=== PATIENT | female | born 1955 | race Caucasian/White ===

== ENCOUNTER → 2017-07-30 11:06 | Outpatient (CLI) | payer BC, SELFPAY ==
--- NOTE | 2017-07-30 11:47 | HPBI_ITS ---
MAMMOGRAPHY - BILATERAL SCREENING REASON FOR EXAM: Female, 62 years old. Routine annual screening examination. PERTINENT HISTORY: Non-contributory. TECHNIQUE: Digital bilateral breast asael (3D mammographic acquisition) in the CC and MLO projections. 2-D mediolateral oblique (MLO) and craniocaudad (CC) views of both breasts were obtained. CAD: Full Field Digital Mammography with Computer Added Detection was performed. COMPARISON: Comparison is made with prior study dated May 09, 2015 and April 30, 2012. FINDINGS: Breast Composition: There are scattered areas of fibroglandular density. There are no dominant masses or suspicious calcifications. Stable benign-appearing bilateral axillary lymph nodes. No other significant abnormalities are identified. There has been no significant change since the prior study. HPBI/SCREENING MAMM (CAD), BILAT IMPRESSION: Stable bilateral screening mammogram. Yearly follow-up mammogram recommended. (A) ASSESSMENT CATEGORY: BIRADS Category 2: Benign. A letter regarding these results will be sent to the patient by the facility within 30 days. Approximately 10% of breast cancers are not detected by mammography. A normal mammogram should not delay biopsy of a clinically suspicious abnormality. [id number] Electronically Signed: Randall Ashford MD at 13:02 EST Tel [phone], Service support ,
[2017-08-04 16:04] LABS: HPV Reflexed? NOT INDICATED
== END ==
PROVIDERS: Visit Provider Obstetrics & Gynecology
DX: Z12.31 Encounter for screening mammogram for malignant neoplasm of breast (principal); Z12.4 Encounter for screening for malignant neoplasm of cervix
CPT/HCPCS: 77063; 77067; 88175; G0145

== ENCOUNTER → 2018-12-28 13:14 | Outpatient (CLI) | payer MEDICARE, OTHER, SELFPAY ==
--- NOTE | 2018-12-28 13:17 | BI_ITS ---
MAMMOGRAPHY - BILATERAL SCREENING REASON FOR EXAM: Female, 63 years old. Routine annual screening examination. PERTINENT HISTORY: Non-contributory. TECHNIQUE: Digital bilateral breast sherrie (3D mammographic acquisition) in the CC and MLO projections. 2-D mediolateral oblique (MLO) and craniocaudad (CC) views of both breasts were obtained. CAD: Full Field Digital Mammography with Computer Added Detection was performed. COMPARISON: Comparison is made with prior study dated July 30, 2017 and May 09, 2015. FINDINGS: Breast Composition: There are scattered areas of fibroglandular density. There are no dominant masses or suspicious calcifications. Stable small bilateral axillary lymph nodes. No other significant abnormalities are identified. There has been no significant change since the prior study. BI/SCREEN MAMM (CAD) W/SHERRIE BILAT IMPRESSION: Stable bilateral screening mammogram. Yearly follow-up mammogram recommended. (A) ASSESSMENT CATEGORY: BIRADS Category 1: Negative. A letter regarding these results will be sent to the patient by the facility within 30 days. Approximately 10% of breast cancers are not detected by mammography. A normal mammogram should not delay biopsy of a clinically suspicious abnormality. [id number] Electronically Signed: Randall Ashford, at 14:37 EDT , Service support ,
== END ==
PROVIDERS: Referring Provider Obstetrics & Gynecology; Visit Provider Obstetrics & Gynecology
DX: Z12.31 Encounter for screening mammogram for malignant neoplasm of breast (principal)
CPT/HCPCS: 77063; 77067

== ENCOUNTER → 2021-04-10 11:37 | Outpatient (CLI) | payer MEDICARE, OTHER, SELFPAY ==
--- NOTE | 2021-04-10 11:45 | BI_ITS ---
MAMMOGRAPHY - BILATERAL SCREENING REASON FOR EXAM: Female, 66 years old. Routine annual screening examination. PERTINENT HISTORY: Non-contributory. TECHNIQUE: Digital bilateral breast sherrie (3D mammographic acquisition) in the CC and MLO projections. 2-D mediolateral oblique (MLO) and craniocaudad (CC) views of both breasts were obtained. CAD: Full Field Digital Mammography with Computer Added Detection was performed. COMPARISON: Comparison is made with prior study dated 12/28/2018 and 07/30/2017. FINDINGS: Breast Composition: There are scattered areas of fibroglandular density. There are no dominant masses or suspicious calcifications. Stable small benign-appearing bilateral axillary lymph nodes. No other significant abnormalities are identified. There has been no significant change since the prior study. BI/SCRN MAMM (CAD)W/SHERRIE BILAT IMPRESSION: Stable bilateral screening mammogram. Yearly follow-up mammogram recommended. (A) ASSESSMENT CATEGORY: BIRADS Category 2: Benign. A letter regarding these results will be sent to the patient by the facility within 30 days. Approximately 10% of breast cancers are not detected by mammography. A normal mammogram should not delay biopsy of a clinically suspicious abnormality. [id number] Electronically Signed: Randall Ashford MD at 13:12 EST , Service support ,
== END ==
PROVIDERS: Referring Provider Obstetrics & Gynecology; Visit Provider Obstetrics & Gynecology
DX: Z12.31 Encounter for screening mammogram for malignant neoplasm of breast (principal)
CPT/HCPCS: 77063; 77067

== ENCOUNTER 2021-08-09 16:00 | Outpatient (CLI) | payer MEDICARE, OTHER, SELFPAY ==
[2021-08-09 17:21] LABS: Anion Gap 2 (5-15); BUN 20 mg/dL (7-18); BUN/Creat Ratio 23.2 RATIO (10-20); Calcium,Total 8.7 mg/dL (8.5-10.1); Chloride 106 mmol/L (98-107); Creatinine, Serum 0.86 mg/dL (0.55-1.02); EST Glomerular Filtration Rate 69 mL/min (>60); Est Glom Filt Rate - Afr Amer 84 mL/min (>60); Glucose 106 mg/dL (74-106); Potassium 4.2 mmol/L (3.5-5.1); Sodium Level 139 mmol/L (136-145)
== END 2021-08-09 23:59 | disposition home or self-care (01) ==
LOC: LAB 16:02
PROVIDERS: Referring Provider Specialist; Visit Provider Specialist
DX: Z01.818 Encounter for other preprocedural examination (principal)
CPT/HCPCS: 36415; 80048

== ENCOUNTER → 2023-07-06 | Outpatient (CLI) | payer MEDICARE, OTHER, SELFPAY ==
[2023-07-06 10:45] LABS: Absolute Lymphocyte Count 1.31 X10^3/uL (0.83-4.51); Basophil# 0.02 X10^3/uL; Basophil% 0.4 % (0-1); Eosinophil# 0.21 X10^3/uL; Eosinophils% 4.3 % (0-5); Hematocrit 38.8 % (37-47); Hemoglobin 12.6 g/dL (12.0-15.0); Lymphocyte # 1.31 X10^3/ul (0.83-4.51); Lymphocyte % 26.7 % (19-41); Mean Corp Hgb Conc 32.5 g/dL (32-36); Mean Corpuscular Hgb 29.5 pg (27.0-32.0); Mean Corpuscular Volume 90.9 fL (81-99); Mean Platelet Vol. 10.7 fl (6.2-12.0); Monocyte# 0.38 X10^3/uL; Monocyte% 7.8 % (0-10); NRBC Flagged by Analyzer 0 % (0-5); Neutrophil # 2.97 X10^3/uL (2.7-7.7); Neutrophil % 60.6 % (47-70); Platelet Count 270 K/mm3 (150-450); RBC Distribution Width CV 13.6 % (11.6-14.6); RBC Distribution Width SD 45.5 fl (35.1-43.9); Red Blood Count 4.27 M/mm3 (4.2-5.4); White Blood Count 4.9 K/mm3 (4.4-11.0)
[2023-07-06 11:38] LABS: Mucous, Urine 0 SEEN /hpf (<or=2+)
[2023-07-06 12:34] LABS: ALB/GLOB Ratio 0.8 RATIO (0.9-2.4); AST(SGOT) 20 U/L (15-37); Alanine Aminotransfer ALT/SGPT 19 U/L (13-56); Albumin, Serum 3.3 g/dL (3.2-5.0); Alkaline Phosphatase 99 U/L (45-117); Anion Gap 4 (5-15); BUN 16 mg/dL (7-18); BUN/Creat Ratio 18.1 RATIO (10-20); Chloride 110 mmol/L (98-107); Cholesterol 210 mg/dL (200); Creatinine, Serum 0.89 mg/dL (0.55-1.02); EST Glomerular Filtration Rate 67 mL/min (>60); Est Glom Filt Rate - Afr Amer 81 mL/min (>60); Globulin 4.3 g/dL (2.2-4.2); Glucose 94 mg/dL (74-106); High Density Lipoprotein 64 mg/dL; Potassium 4.1 mmol/L (3.5-5.1); Protein, Total 7.6 g/dL (6.4-8.2); Sodium Level 143 mmol/L (136-145); T4 Free Direct 0.69 ng/dL (0.76-1.46); Triglycerides 91 mg/dL; Very Low Density Lipoprotein 18 mg/dL (5-40)
[2023-07-06 12:44] LABS: Color, Urine Yellow (Yellow); Glucose, Dipstick Normal (Normal); Ketone-Dipstick Negative (Negative); Leukocyte Esterase-Dipstick 100 /ul (Negative); Nitrite-Dipstick Negative (Negative); Occult Blood-Urine 25 /ul (Negative); Protein-Dipstick 30 mg/dl (Negative); Urine Bilirubin Dipstick Negative (Negative); Urine Clarity Clear (Clear); Urine Urobilinogen Normal (Normal)
[2023-07-06 14:18] LABS: Bacteria 1+ /hpf (None Seen); Red Blood Cells-Urine 0-5 SEEN /hpf (0-5); Squamous Epithelial Cells - UA 0-5 SEEN /hpf (5-10); White Blood Cells 10-25 SEEN /hpf (0-5)
== END | disposition home or self-care (01) ==
LOC: BIMLAB 09:22
PROVIDERS: PCP Internal Medicine; Referring Provider Internal Medicine; Visit Provider Internal Medicine
DX: D64.9 Anemia, unspecified (principal); L65.9 Nonscarring hair loss, unspecified; E66.9 Obesity, unspecified
CPT/HCPCS: 36415; 80053; 80061; 81001; 84439; 84443; 85025

== ENCOUNTER → 2023-07-28 | Outpatient (CLI) | payer MEDICARE, OTHER, SELFPAY ==
--- NOTE | 2023-07-28 13:08 | BI_ITS ---
MAMMOGRAPHY - BILATERAL SCREENING 3-D TOMOSYNTHESIS REASON FOR EXAM: Female, 68 years old. Breast cancer screening PERTINENT HISTORY: No significant family history. TECHNIQUE: 2-D mammograms and 3-D Tomosynthesis of the breast (s) were performed. CAD was performed. COMPARISON: 04/10/2021 FINDINGS: The breast composition is composed of scattered fibroglandular density. Scattered benign calcifications are seen. No dense spiculated masses or suspicious microcalcifications are identified. No architectural distortion is identified. There is no skin thickening or retraction. There has been no significant change since the prior study. BI/SCRN MAMM (CAD)W/SHERRIE BILAT IMPRESSION: No mammographic signs of malignancy. Routine yearly mammograms recommended. ASSESSMENT CATEGORY: BIRADS Category 1: Negative. A letter regarding these results will be sent to the patient by the facility within 30 days. FOLLOW UP RECOMMENDATION: Yearly follow up mammogram recommended. (A) Approximately 10% of breast cancers are not detected by mammography. A normal mammogram should not delay biopsy of a clinically suspicious abnormality. Electronically Signed: John Ann MD at 17:31 EST ,
--- NOTE | 2023-07-28 13:12 | BD_ITS ---
STUDY: DUAL ENERGY X-RAY ABSORPTIOMETRY / DXA REASON FOR EXAM: Female, 68 years old. Post menopausal TECHNIQUE: Bone Mineral Density (BMD) measurements of lumbar spine and bilateral hips were obtained. COMPARISON: None. FINDINGS: Lumbar Spine (L1-L4): g/cm2 (0.856) / T-score (-1.1) / Z-score (0.9) Findings are suggestive of osteopenia with a low fracture risk. Left Femur Total: g/cm2 (0.827) / T-score (-0.9) / Z-score (0.6) Left Femoral Neck: g/cm2 (0.678) / T-score (-1.5) / Z-score (0.3) Right Femur Total: g/cm2 (0.788) / T-score (-1.3) / Z-score (0.3) Right Femoral Neck: g/cm2 (0.675) / T-score (-1.6) / Z-score (0.3) BD/Dexa Bone Density Study IMPRESSION: The patient is considered osteopenic as outlined below according to World Piot[employer] Organization (WHO) criteria with a moderate fracture risk. Reference Information: The T-score is the number of standard deviations above or below the standard which is normal for young adults at their peak bone mineral density. The World Health Organization (WHO) interprets the T-scores as follows: Above -1 Normal bone density Between -1 and -2.5 Osteopenia Equal to / or below -2.5 Osteoporosis As a practical clinical guideline, osteopenia may be graded as follows: Mild -1 through -1.5 Moderate -1.6 through -2.0 Severe -2.1 through -2.4 The Z-score is the number of standard deviations above or below age-matched controls. A Z-score of less than -1.5 would be considered abnormal. References: 1. NIH Osteoporosis and Related Bone Diseases www osteo.org 2. International Society for Clinical Densitometry www iscd.org 3. National Osteoporosis Foundation www nof.org Electronically Signed: Randall Ashford MD at 14:12 EDT ,
== END | disposition home or self-care (01) ==
LOC: OPBD 13:08
PROVIDERS: PCP Internal Medicine; Referring Provider Internal Medicine; Visit Provider Internal Medicine
DX: Z12.31 Encounter for screening mammogram for malignant neoplasm of breast (principal); Z78.0 Asymptomatic menopausal state
CPT/HCPCS: 77063; 77067; 77080

== ENCOUNTER → 2023-08-25 | Outpatient (CLI) | payer MEDICARE, OTHER, SELFPAY ==
[2023-08-25 13:05] LABS: Thyroid Stim Hormone (TSH) 3.45 uIU/mL (0.358-3.74)
== END | disposition home or self-care (01) ==
LOC: BIMLAB 10:26
PROVIDERS: PCP Internal Medicine; Referring Provider Internal Medicine; Visit Provider Internal Medicine
DX: E03.9 Hypothyroidism, unspecified (principal)
CPT/HCPCS: 36415; 84443

== ENCOUNTER → 2024-02-24 | Outpatient (CLI) | payer MEDICARE, OTHER, SELFPAY | END | disposition home or self-care (01) | LOC: BIMLAB 10:07 | PROVIDERS: PCP Internal Medicine; Referring Provider Internal Medicine; Visit Provider Internal Medicine | DX: E03.9 Hypothyroidism, unspecified (principal) | CPT/HCPCS: 36415; 84443 ==

== ENCOUNTER → 2024-04-12 | Outpatient (CLI) | payer MEDICARE, OTHER, SELFPAY | END | disposition home or self-care (01) | LOC: BIMLAB 13:15 | PROVIDERS: PCP Internal Medicine; Visit Provider Internal Medicine | DX: E03.9 Hypothyroidism, unspecified (principal) | CPT/HCPCS: 36415; 84443 ==

== ENCOUNTER → 2024-05-31 | Outpatient (CLI) | payer MEDICARE, OTHER, SELFPAY | END | disposition home or self-care (01) | LOC: BIMLAB 11:45 | PROVIDERS: PCP Internal Medicine; Referring Provider Internal Medicine; Visit Provider Internal Medicine | DX: E03.9 Hypothyroidism, unspecified (principal) | CPT/HCPCS: 36415; 84443 ==

== ENCOUNTER → 2024-07-20 | Outpatient (CLI) | payer MEDICARE, OTHER, SELFPAY ==
[2024-07-20 13:03] LABS: Thyroid Stim Hormone (TSH) 0.943 uIU/mL (0.300-4.200)
== END | disposition home or self-care (01) ==
LOC: BIMLAB 11:10
PROVIDERS: PCP Internal Medicine; Referring Provider Internal Medicine; Visit Provider Internal Medicine
DX: E03.9 Hypothyroidism, unspecified (principal)
CPT/HCPCS: 36415; 84439; 84443

== ENCOUNTER → 2024-09-05 | Outpatient (CLI) | payer MEDICARE, OTHER, SELFPAY ==
[2024-09-05 12:45] LABS: Absolute Lymphocyte Count 1.34 X10^3/uL (0.83-4.51); Absolute Neutrophil Count 3.8 X10^3/uL (2.0-7.7); Basophil# 0.02 X10^3/uL; Basophil% 0.4 % (0-1); Eosinophil# 0.18 X10^3/uL; Eosinophils% 3.2 % (0-5); Hematocrit 39.2 % (37-47); Hemoglobin 12.8 g/dL (12.0-15.0); Lymphocyte # 1.34 X10^3/ul (0.83-4.51); Lymphocyte % 23.6 % (19-41); Mean Corp Hgb Conc 32.7 g/dL (32-36); Mean Corpuscular Hgb 29.5 pg (27.0-32.0); Mean Corpuscular Volume 90.3 fL (81-99); Mean Platelet Vol. 10.9 fl (6.2-12.0); Monocyte# 0.37 X10^3/uL; Monocyte% 6.5 % (0-10); NRBC Flagged by Analyzer 0 % (0-5); Neutrophil # 3.78 X10^3/uL (2.7-7.7); Neutrophil % 66.3 % (47-70); Platelet Count 274 K/mm3 (150-450); RBC Distribution Width CV 13.3 % (11.6-14.6); RBC Distribution Width SD 44.3 fl (35.1-43.9); Red Blood Count 4.34 M/mm3 (4.2-5.4); White Blood Count 5.7 K/mm3 (4.4-11.0)
[2024-09-05 13:45] LABS: Cholesterol 209 mg/dL (<=200); High Density Lipoprotein 67 mg/dL; Low Density Lipoprotein Calc. 119 mg/dL; Thyroid Stim Hormone (TSH) 0.873 uIU/mL (0.300-4.200); Triglycerides 113 mg/dL; Very Low Density Lipoprotein 23 mg/dL (5-40); cholesterol:hdl ratio screen 3.11
[2024-09-05 13:46] LABS: ALB/GLOB Ratio 1.2 RATIO (0.9-2.4); AST(SGOT) 24 U/L (<=31); Alanine Aminotransfer ALT/SGPT 13 U/L (<=34); Alkaline Phosphatase 91 U/L (35-104); Anion Gap 11 (5-15); BUN 16 mg/dL (4-19); BUN/Creat Ratio 18.2 RATIO (10-20); Calcium,Total 9.3 mg/dL (7.6-11.0); Carbon Dioxide 26.6 mmol/L (21.0-32.0); Chloride 105 mmol/L (98-108); EST Glomerular Filtration Rate 68 (>60); Globulin 3.4 g/dL (2.2-4.2); Glucose 117 mg/dL (70-99); Potassium 3.7 mmol/L (3.3-5.1); Protein, Total 7.4 g/dL (5.9-8.4); Sodium Level 143 mmol/L (133-145); Total Bilirubin 0.35 mg/dL (0.00-1.30)
== END | disposition home or self-care (01) ==
LOC: BIMLAB 10:54
PROVIDERS: PCP Internal Medicine; Referring Provider Internal Medicine; Visit Provider Internal Medicine
DX: E03.9 Hypothyroidism, unspecified (principal); R73.9 Hyperglycemia, unspecified
CPT/HCPCS: 36415; 80053; 80061; 83036; 84443; 85025

== ENCOUNTER → 2024-09-20 | Outpatient (CLI) | payer MEDICARE, OTHER, SELFPAY ==
--- NOTE | 2024-09-20 09:45 | BI_ITS ---
EXAM: SCRN MAMM (CAD)W/SHERRIE BILAT 09/20/2024 CLINICAL HISTORY: F, Age 69 y/o , BREAST CANCER SCREENING TECHNIQUE: Bilateral screening digital breast tomosynthesis with 2D and 3D images. Computer aided detection. COMPARISON: Prior exam(s) dated 07/28/2023, 04/10/2021, 12/28/2018. FINDINGS: TISSUE DENSITY: The breast tissue is composed of scattered area of fibroglandular density. Bilateral Breast Mammographic Findings: No significant masses, calcifications or other abnormalities are identified. BI/SCRN MAMM (CAD)W/SHERRIE BILAT IMPRESSION: Right Breast: BIRADS 1 NEGATIVE. Left Breast: BIRADS 1 NEGATIVE. OVERALL FINAL ASSESSMENT: BIRADS 1 NEGATIVE. RECOMMENDATION: Routine annual follow-up in 1 Year A letter with findings and recommendations will be mailed to the patient. Reading Location: [id number]
== END | disposition home or self-care (01) ==
LOC: OPBI 09:33
PROVIDERS: PCP Internal Medicine; Referring Provider Internal Medicine; Visit Provider Internal Medicine
DX: Z12.31 Encounter for screening mammogram for malignant neoplasm of breast (principal)
CPT/HCPCS: 77063; 77067

== ENCOUNTER → 2025-01-21 | Outpatient (CLI) | payer MEDICARE, OTHER, SELFPAY ==
--- OUTSIDE RECORDS SUMMARY | 2025-01-21 08:42 | XMS RPT_ITS | CCD ---
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 Caicedo Attending Provider [phone] Lonny SCHNEIDER, Dr. Caicedo Primary Care Provider Lonny SCHNEIDER, Dr. Caicedo Attending Provider [phone] Lonny SCHNEIDER, Dr. Caicedo Referring Provider [phone] Lonny SCHNEIDER, Dr. Caicedo Primary Care Provider Lonny SCHNEIDER, Dr. Caicedo Attending Provider [phone] Lonny SCHNEIDER, Dr. Caicedo Primary Care Provider Lonny SCHNEIDER, Dr. Caicedo Attending Provider [phone] Lonny SCHNEIDER, Dr. Caicedo Referring Provider [phone] Bhanu SCHNEIDER, Dr. Chan Attending Provider Oleghe, Efewongbe Primary Care Unavailable Oleghe, Efewongbe Referring Unavailable Oleghe, Efewongbe Attending Unavailable Oleghe, Efewongbe Referring Unavailable Oleghe, Efewongbe Attending Unavailable Oleghe, Efewongbe Primary Care Unavailable Oleghe, Efewongbe Attending Unavailable Oleghe, Efewongbe Primary Care Unavailable Oleghe, Efewongbe Referring Unavailable Oleghe, Efewongbe Primary Care Unavailable Oleghe, Efewongbe Attending Unavailable Oleghe, Efewongbe Referring Unavailable Oleghe, Efewongbe Attending Unavailable Oleghe, Efewongbe Primary Care Unavailable Oleghe, Efewongbe Referring Unavailable Oleghe, Efewongbe Attending Unavailable Oleghe, Efewongbe Primary Care Unavailable Oleghe, Efewongbe Attending Unavailable Oleghe, Efewongbe Primary Care Unavailable Oleghe, Efewongbe Referring Unavailable Oleghe, Efewongbe Primary Care Unavailable Oleghe, Efewongbe Referring Unavailable Oleghe, Efewongbe Attending Unavailable Oleghe, Efewongbe Primary Care Unavailable Oleghe, Efewongbe Referring Unavailable Bhanu, [place] Attending Unavailable Oleghe, Efewongbe Referring Unavailable Oleghe, Efewongbe Attending Unavailable Oleghe, Efewongbe Primary Care Unavailable Oleghe, Efewongbe Primary Care Unavailable Oleghe, Efewongbe Referring Unavailable Oleghe, Efewongbe Attending Unavailable Allergies Allergy Classification Reported Allergen(s) Allergy Type Date of Onset Reaction(s) Facility (7 sources) Seasonal Allergies: Uncoded; Translations: [Seasonal Allergies: Uncoded] Allergy to substance 06-29-2023 sneezing [facility] Medications Current Medications Medication Drug Class(es) Dates Sig (Normalized) Sig (Original) Calcium (3 sources) Phosphate Binder, Calcium Start: 09-02-2023 calcium 600 Active PO September 02, 2023 12:00am ketoconazole 20 mg/ml medicated shampoo (1 source) Azole Antifungal Start: 12-21-2024 Ketoconazole 2 % shampoo Active TOPICAL TWICE A WEEK December 21, 2024 12:00am levothyroxine sodium 0.075 mg oral tablet (20 sources) l-Thyroxine Start: 06-02-2024 End: 09-05-2024 take 1 tablet by mouth once daily Levothyroxine 75 mcg tablet Active 75 ug PO DAILY 90 September 05, 2024 8:16pm Start: 07-06-2023 End: 06-02-2024 take 1 tablet by mouth once daily Levothyroxine 50 mcg tablet Discontinued 50 ug PO DAILY 60 February 24, 2024 10:50am March 07, 2024 10:36am metoprolol tartrate 50 mg oral tablet (1 source) beta-Adrenergic Danica Start: 10-04-2024 take 1 tablet by mouth once daily Metoprolol Tartrate 50 mg tablet Active 50 mg PO daily 1 October 04, 2024 12:00am minoxidil 2.5 mg oral tablet (3 sources) Arteriolar Vasodilator Start: 09-05-2024 End: 12-21-2024 take 1 tablet by mouth once daily Minoxidil 2.5 mg tablet Active 0.25 mg PO daily December 21, 2024 7:43am Multivitamin preparation (3 sources) Start: 06-29-2023 take 1 tablet by mouth once daily Multivitamin Active 1 TABLET PO DAILY June 29, 2023 1:00am Start: 06-29-2023 take 1 tablet by travis th once daily Multivitamin Active 1 TABLET PO DAILY June 29, 2023 12:00am Multivitamin tablet (3 sources) Start: 06-29-2023 Multivitamin t ablet Active 1 {tbl} PO DAILY June 29, 2023 1:00am rosuvastatin calcium 5 mg oral tablet (1 source) HMG-CoA Reductase Inhibitor Start: 12-21-2024 take 1 tablet by mouth once daily Rosuvastatin 5 mg tablet Active 5 mg PO daily 21 08December 21, 2024 12:00am Vit D 2000 (3 sources) Start: 09-02-2023 Vit D 2000 Act emily PO September 02, 2023 12:00am Problems Active Problems Problem Classification Problem Date Documented Da te Episodic/Chronic Coronary atherosclerosis and other heart disease (4 sources) Coronary arteriosclerosis; Translations: [Atherosclerotic heart disease of [place] coronary artery without angina pectoris] Onset: 12-21-2024 12-21-2024 Chronic Deficiency and other anemia (6 sources) Anemia; Translations: [Anemia, unspecified] 06-29-2023 Episodic Deficiency and other anemia (3 sources) Anemia, unspecified; Translations: [Anemia, unspecified] 06-29-2023 Episodic Genitourinary symptoms and ill-defined conditions (9 sources) Nocturia; Translations: [Nocturia] 06-29-2023 Episodic Other bone disease and musculoskeletal deformities (4 sources) Osteopenia; Translations: [Other specified disorders of bone density and structure, unspecified site] 03-07-2024 Episodic Other bone disease and musculoskeletal deformities (1 source) Other specified disorders of bone density and structure, unspecified site; Translations: [Other specified disorders of bone density and structure, unspecified site] Onset: 12-21-2024 Episodic Other screening for suspected conditions (not mental disorders or infectious disease) (1 source) Encounter for screening mammogram for malignant neoplasm of breast; Translations: [Encounter for screening mammogram for malignant neoplasm of breast] Onset: 12-13-2024 Episodic Other skin disorders (6 sources) Loss of hair; Translations: [Nonscarring hair loss, unspecified] 06-29-2023 Episodic Other skin disorders (3 sources) Nonscarring hair loss, unspecified; Translations: [Alopecia, unspecified] 06-29-2023 Episodic Residual codes; unclassified (4 sources) At risk of diabetes mellitus; Translations: [Other specified personal risk factors, not elsewhere classified] 09-05-2024 Episodic Residual codes; unclassified (2 sources) Cardiovascular event risk; Translations: [Other specified personal risk factors, not elsewhere classified] 09-05-2024 Episodic Residual codes; unclassified (4 sources) FH: premature coronary heart disease; Translations: [Family history of ischemic heart disease and other diseases of the circulatory system] 09-05-2024 Episodic Residual codes; unclassified (2 sources) Other specified personal risk factors, not elsewhere classified; Translations: [Other specified personal risk factors, not elsewhere classified] Onset: 10-05-2024 Episodic Thyroid disorders (10 sources) Hypothyroidism; Translations: [Hypothyroidism, unspecified] Onset: 12-21-2024 07-06-2023 Chronic Past or Other Problems Problem Classification Problem Date Documented Da te Episodic/Chronic Residual codes; unclassified (1 source) Family history of ischemic heart disease and other diseases of the circulatory system; Translations: [Family history of ischemic heart disease and other diseases of the circulatory system] Onset: 09-05-2024 Episodic Results Test Name Value Interpretation Reference Range Facility Internal Medicine Office Vis ito 12-21-2024 Internal Medicine Office Visit [facility] [address] [place] [address] [place] [address] OFFICE VISIT Date of Service: 12/21/24 MR#: [id number] Acct: [id number] Name: BAILEY BEST Rep #: [id number] : 1955 Provider: Dr. Marifer solis MD Age/Sex: 69/F Location: [facility] Status: Signed Intake Vital Signs 09/05/24 10:18 12/21/24 07:40 Height 5 ft 5 in 5 ft 5 in Weight: 182 lb 2 oz BMI 30.3 BP 110/58 L Blood Pressure Location Lt brachial Position Sitting Respiration 16 Pulse 83 Pulse Source Monitor Temp 97.7 F L Temp Source Oral Pulse Oximetry (%) 96 Oxygen Delivery Method room air Intake Visit Reasons: discuss calcium scoring Chief Complaint: Follow-up chronic conditions. 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 Required: No Accompanied by: Self Is patient in pain?: No Allergies Seasonal Allergies: Uncoded Allergy (Mild, Verified 12/21/24 07:42) sneezing Medications ???Medication ???Instructions ???Recorded ???Confirmed ???Type multivitamin 1 tab PO DAILY 06/29/23 12/21/24 H istory Vit D 2000 PO 09/02/23 12/21/24 History calcium 600 PO 09/02/23 12/21/24 History levothyroxine 75 mcg tablet 75 mcg PO DAILY #90 tabs 09/05/24 12/21/24 Rx metoprolol tartrate 50 mg tablet 50 mg PO QDAY #1 TAB 10/04/2411/24 Rx ketoconazole 2 % shampoo topical 2XW 12/21/24 12/21/24 Hist ory minoxidil 2.5 mg tablet 0.25 mg PO QDAY 12/21/24 12/21/24 History rosuvastatin 5 mg tablet 5 mg PO QDAY #30 tabs 12/21/24 Rx Have you fallen in the past year?: Yes Nurse's Note: patient is here to discuss results of calcium scoring. [facility] Medical History (Updated 12/21/24 @ 08:[address] Marifer Mukherjee MD) Coronary artery disease At risk for diabetes mellitus Family history of early CAD At risk for cardiovascular event Osteopenia Hypothyroidism Health care maintenance Hair loss Nocturia Trigger finger Gallstones Back problem Arthritis Anemia Allergies Surgical History Status post tendon repair History of cholecystectomy H/O tubal ligation Family History Sister Alcoholism Brother Alcoholism Arthritis Father Alcoholism Myocardial infarction, Onset Age: 60 Heart disease Mother Arthritis Heart disease Vitiligo Aunt Cancer Uncle Cancer Grandmother Diabetes Social History current occupational status: retired Smoking Status: Never smoker alcohol intake: current alcohol intake frequency: holidays/special occasions only Alcohol type: wine substance use type: does not use what type of physical activity do you participate in: walking frequency: 3-4 times per week kevin/sabianism: None seatbelt use: always do you feel safe at home: Yes HPI HPI Chief Complaint: Follow-up chronic conditions. Discussed coronary calcium scoring Details: BAILEY BEST, is a 69 F who presents to the office today for follow-up of her chronic conditions. Recently had coronary calcium scoring which showed mild plaque in the LAD. She states that her brother also had coronary calcium scoring with similar finding. Positive family history of early CAD. Last lipid profile with LDL at 119 down from 128. HDL was 67. No tobacco or alcohol abuse. Current BMI of 30.3. History of hypothyroidism on levothyroxine. Last TSH was within range. No heat or cold intolerance or unintentional weight changes. Other chronic medical conditions are stable. ROS Const Constitutional: No body ache, chills, excessive sweating, fatigue, fever(s), frequent falls, headache(s), snoring, weakness, weight change, sleep problems or change in appetite Eyes Eyes: No blurry vision, change in vision, vision loss, dry eyes, eye pain or Light sensitivity ENT ENT: No abnormal hearing, ear or mastoid pain, tinnitus, nasal congestion, headache(s), neck pain or sore throat Resp Respiratory: No cough, excessive phlegm production, hemoptysis, shortness of breath, snoring or wheezing Cardio Cardiology: No chest pain at rest, chest pain with exertion, excessive sweating, shortness of breath, lightheadedness, orthopnea or palpitations Gastro GI: No abdominal pain, change in bowel habits, constipation, cramping, diarrhea, nausea/dyspepsia or vomiting Genitourinary-Femal e: No burning urination, painful urination, urinary incontinence, urinary frequency, abnormal vaginal bleeding or pelvic pain Musc Musculoskeletal: No abnormal gait, joint pain, back pain, limited range of motion, neck pain, numbness or tingling Skin Skin: No change in skin color, dry skin, redness, lesions, itchy eyes, rash or wounds Neuro Neurology: No abnormal gait, abnormal hearing, abnormal speech (more content not included)... Normal [facility] Coronary Angiography CTon Coronary Angiography CT [facility] Imaging Services [address] [place] [address] 10/05/24 1625 MR#: [id number] Acct: [id number] Name: BAILEY BEST Rep #: [id number] : 1955 69 From: Dustin Drummond MD PCP: Dr. Marifer Mukherjee MD Status:REG REF Y Location: CT Calcium Scoring Date of Study:: 10/05/24 Indications Indications: Family history Coronary Calcium Scoring: High-resolution Computed Tomographic imaging of the chest was performed on [10/05/2024], with particular attention paid to the coronary arteries. Images from the examination were analyzed for the presence and extent of coronary artery calcification , using coronary calcium quantification software. The patient tolerated the procedure well and there were no complications. The results of the coronary calcification analysis are provided below. Findings Coronary Artery Left Main (LM): 0 Left Anterior Descending (LAD): 128 Left Circumflex (LCX): 0 Right Coronary Artery (RCA): 0 Total Agatston Score: 128 Percentile Rankin-7 5th percentile Calcium Scoring Interpretation: Different methods to categorize the overall amount of coronary plaque. Overall amount CAC SIS Visual of coronary plaque P1 Mild -100 <2 1-2 vessels with mild amount of plaque P2 Moderate 101-300 3-4 1-2 vessels with moderate amount, 3 vessels with mild amount of plaque P3 Severe 301-999 5-7 3 vessels with moderate amount, 1 vessel with severe amount of plaque P4 Extensive >1000 >8 2-3 vessels with severe amount of plaque Calcium Score: Mild: 1-2 vessels w/mild amount of plaque Conclusion: Mild single-vessel plaque noted in the left anterior descending artery. 10/05/24 1626 Date Dustin Drummond MD Cosigner Signature (if applicable): Date CC: Dr. Dustin Drummond MD; Dr. Marifer Mukherjee MD Signed Normal [facility] Limited Chest CT Cardiac Onl yon 10-05-[address] Cardiac Only [facility] Imaging Services [address] [place] [address] Cardiac Only MR#: [id number] Acct: [id number] Name: BAILEY BEST Rep #: [id number] : 1955 F 69 From: Randall looney MD PCP: Dr. Marifer Mukherjee MD Status: REG REF Study: Limited Chest CT Cardiac Only Date of Exam: Exam# [id number] Ordering Dr: Marifer Mukherjee MD PROCEDURE: LIMITED CHEST CT CARDIAC ONLY REASON FOR EXAM: FAMILY HISTORY OF EARLY CAD TECHNIQUE: Supine chest CT without contrast,. One or more dose reduction techniques were used (e.g., Automated exposure control, adjustment of the mA and/or kV according to patient size, use of iterative reconstruction technique). COMPARISON: None FINDINGS: Hardware: None Lymph nodes: Benign granulomatous calcifications. Heart and Vasculature: Normal heart size. No pericardial effusion. Coronary Artery Calcifications: Present Lungs and Airways: 9.7 mm calcified granuloma in the peripheral lateral aspect of the left lower lobe. Pleura: Unremarkable Upper Abdomen: Unremarkable Bones: Degenerative changes of the thoracic spine. CT/Limited Chest CT Cardiac Only IMPRESSION: Coronary artery calcification (CAC) is is present Reading Location: [id number] CC: Dr. Marifer Mukherjee MD Cake Washer: Signed Normal [facility] SCRN MAMM (CAD)W/SHERRIE BILATo n 09-20-2024 SCRN MAMM (CAD)W/SHERRIE BILAT [facility] Imaging Services [address] [place] [address] SCRN MAMM (CAD)W/SHERRIE BILAT MR#: [id number] Acct: [id number] Name: BAILEY BEST Rep #: [id number] : 1955 F 69 From: Rosalina Alba MD PCP: Dr. Marifer Mukherjee MD Status: REG CLI Study: SCRN MAMM (CAD)W/SHERRIE BILAT Date of Exam: 08/24 02/16 Exam# [id number] Ordering Dr: Marifer Mukherjee MD EXAM: SCRN MAMM (CAD)W/SHERRIE BILAT 09/20/2024 CLINICAL HISTORY: F, Age 69 y/o , BREAST CANCER SCREENING TECHNIQUE: Bilateral screening digital breast tomosynthesis with 2D and 3D images. Computer aided detection. COMPARISON: Prior exam(s) dated 07/28/2023, 04/10/2021, 12/28/2018. FINDINGS: TISSUE DENSITY: The breast tissue is composed of scattered area of fibroglandular density. Bilateral Breast Mammographic Findings: No significant masses, calcifications or other abnormalities are identified. BI/SCRN MAMM (CAD)W/SHERRIE BILAT IMPRESSION: Right Breast: BIRADS 1 NEGATIVE. Left Breast: BIRADS 1 NEGATIVE. OVERALL FINAL ASSESSMENT: BIRADS 1 NEGATIVE. RECOMMENDATION: Routine annual follow-up in 1 Year A letter with findings and recommendations will be mailed to the patient. Reading Location: [facility] CC: Dr. Marifer Mukherjee MD Cake Washer: Signed Normal [facility] Hemoglobin A1con 09-06-2024 HbA1c (Bld) [Mass fraction] 6.0 % High <=5.6 [facility] Comment on above: Result Comment: Norm al < 5.7 % Prediabetic 5.7 - 6.4 % Diabetic >or= 6.5 % Please note range changes. Performed By: #### L 501.9985 ####[facility] [address] [place], [address] Absolute lymphocyte countOrd ered By: Marifer Mukherjee on 09-05-2024 Lymphocytes Auto (Unsp spec) [#/Vol] 1.34 10*3/uL 0.83-4.51 [facility] Absolute neutrophil countOrd ered By: Marifer Mukherjee on 09-05-2024 Neutrophils (Bld) [#/Vol] 3.8 10*3/uL 2.0-7.7 [facility] Anion gap in Serum or Plasma Ordered By: Marifer Mukherjee on 09-05-2024 Anion gap [Moles/Vol] 11 mmol/L 5- [facility] Automated lymphocyte count a s percentage of total leukocytesOrdered By: Marifer Mukherjee on 09-05-2024 Lymphocytes/100 WBC Auto (Unsp spec) 23.6 % - [facility] BUN/creatinine ratioOrdered By: [facility] Mukherjee on 09-05-2024 Urea nitrogen/Creatinine [Mass ratio] 18.2 mg/mg 10- [facility] Basophil percentageOrdered B y: Marifer Mukherjee on 09-05-2024 Basophils/100 WBC (Bld) 0.4 % 0-1 [facility] Bilirubin, totalOrdered By: Marifer Mukherjee on 09-05-2024 Bilirubin [Mass/Vol] 0.35 mg/dL 0.00-1.30 [facility] CBC W/Diff, Automatedon 08-23 Absolute Lymph 1.34 X10 3/uL Normal 0.83-4.51 [facility] Comment on above: Performed By: #### L 100.0100, L500.4100, L500.4050, L501.9520 ####[facility] [address] [place], [address] Absolute Neut 3.8 X10 3/uL Normal 2.0-7.7 [facility] Comment on above: Performed By: #### L 100.0100, L500.4100, L500.4050, L501.9520 ####[facility] [address] [place], [address] Basophils/100 WBC (Bld) 0.4 % Normal 0-1 [facility] Comment on above: Performed By: #### L 100.0100, L500.4100, L500.4050, L501.9520 ####[facility] [address] [place], [address] Eosinophils/100 WBC (Bld) 3.2 % Normal 0-5 [facility] Comment on above: Performed By: #### L 100.0100, L500.4100, L500.4050, L501.9520 ####[facility] [address] [place], [address] Erythrocyte distribution width (RBC) [Ratio] 13.3 % Normal 11.6-14.6 [facility] Comment on above: Performed By: #### L 100.0100, L500.4100, L500.4050, L501.9520 ####[facility] [address] [place], [address] Hematocrit (Bld) [Volume fraction] 39.2 % Normal 37-47 [facility] Comment on above: Performed By: #### L 100.0100, L500.4100, L500.4050, L501.9520 ####[facility] [address] [place], [address] Hemoglobin (Bld) [Mass/Vol] 12.8 g/dL Normal 12.0-15.0 [facility] Comment on above: Performed By: #### L 100.0100, L500.4100, L500.4050, L501.9520 ####[facility] [address] [place], [address] IG% 0.000 Normal 0.0-0.9 [facility] Comment on above: Result Comment: IG% - Immature Granulocytes (promyelocytes, myelocytes and metamyelocytes) > 1% indicates that a LEFT SHIFT is Present. Performed By: #### L 100.0100, L500.4100, L500.4050, L501.9520 ####[facility] [address] [place], [address] Lymphocytes/100 WBC (Bld) 23.6 % Normal 19-41 [facility] Comment on above: Performed By: #### L 100.0100, L500.4100, L500.4050, L501.9520 ####[facility] [address] [place], [address] MCH (RBC) [Entitic mass] 29.5 pg Normal 27.0-32.0 [facility] Comment on above: Performed By: #### L 100.0100, L500.4100, L500.4050, L501.9520 ####[facility] [address] [place], [address] MCHC (RBC) [Mass/Vol] 32.7 g/dL Normal 32-36 [facility] Comment on above: Performed By: #### L 100.0100, L500.4100, L500.4050, L501.9520 ####[facility] [address] [place], [address] MCV (RBC) [Entitic vol] 90.3 fL Normal 81-99 [facility] Comment on above: Performed By: #### L 100.0100, L500.4100, L500.4050, L501.9520 ####[facility] [address] [place], [address] Monocytes/100 WBC (Bld) 6.5 % Normal 0-10 [facility] Comment on above: Performed By: #### L 100.0100, L500.4100, L500.4050, L501.9520 ####[facility] [address] [place], [address] Neutrophils/100 WBC (Bld) 66.3 % Normal 47-70 [facility] Comment on above: Performed By: #### L 100.0100, L500.4100, L500.4050, L501.9520 ####[facility] [address] [place], [address] Nucleated RBC (Bld) [#/Vol] 0 10*3/uL Normal 0-5 [facility] Comment on above: Performed By: #### L 100.0100, L500.4100, L500.4050, L501.9520 ####[facility] [address] [place], [address] Platelet mean volume (Bld) [Entitic vol] 10.9 fL Normal 6.2-12.0 [facility] Comment on above: Performed By: #### L 100.0100, L500.4100, L500.4050, L501.9520 ####[facility] [address] [place], [address] Platelets (Bld) [#/Vol] 274 10*3/uL Normal 150-450 [facility] Comment on above: Performed By: #### L 100.0100, L500.4100, L500.4050, L501.9520 ####[facility] [address] [place], [address] RBC (Bld) [#/Vol] 4.34 10*6/uL Normal 4.2-5.4 [facility] Comment on above: Performed By: #### L 100.0100, L500.4100, L500.4050, L501.9520 ####[facility] [address] [place], [address] RDW SD 44.3 fl High 35.1-43.9 [facility] Comment on above: Performed By: #### L 100.0100, L500.4100, L500.4050, L501.9520 ####[facility] [address] [place], [address] WBC (Bld) [#/Vol] 5.7 10*3/uL Normal 4.4-11.0 [facility] Comment on above: Performed By: #### L 100.0100, L500.4100, L500.4050, L501.9520 ####[facility] [address] [place], [address] Calculated very low density lipoprotein (VLDL) cholesterol measurementOrdered By: Marifer Mukherjee on 09-05-2024 Calculated very low density lipoprotein (VLDL) cholesterol measurement 23 mg/dL - [facility] VLDL Cholesterol 23 mg/dL - [facility] Carbon dioxide, total [Moles /volume] in Central venous bloodOrdered By: Marifer Mukherjee on 09-05-2024 CO2 [Moles/Vol] 26.6 mmol/L 21.0-32.0 [facility] Chloride assayOrdered By: Lissa Mukherjee on 09-05-2024 Chloride [Moles/Vol] 105 mmol/L 98-108 [facility] Comprehensive Metabolic Prof ilon 09-05-2024 Albumin [Mass/Vol] 4.0 g/dL Normal 3.4-4.8 [facility] Comment on above: Performed By: #### L 100.0100, L500.4100, L500.4050, L501.9520 ####[facility] [address] [place], [address] ALK PHOS 91 U/L Normal 35-104 [facility] Comment on above: Performed By: #### L 100.0100, L500.4100, L500.4050, L501.9520 ####[facility] [address] [place], [address] ALT [Catalytic activity/Vol] 13 U/L Normal <=34 [facility] Comment on above: Performed By: #### L 100.0100, L500.4100, L500.4050, L501.9520 ####[facility] [address] [place], [address] AST [Catalytic activity/Vol] 24 U/L Normal <=31 [facility] Comment on above: Performed By: #### L 100.0100, L500.4100, L500.4050, L501.9520 ####[facility] [address] [place], [address] Bilirubin [Mass/Vol] 0.35 mg/dL Normal 0.00-1.30 [facility] Comment on above: Performed By: #### L 100.0100, L500.4100, L500.4050, L501.9520 ####[facility] [address] [place], [address] BUN/CRE 18.2 RATIO Normal 10-20 [facility] Comment on above: Performed By: #### L 100.0100, L500.4100, L500.4050, L501.9520 ####[facility] [address] [place], [address] Calcium [Mass/Vol] 9.3 mg/dL Normal 7.6-11.0 [facility] Comment on above: Performed By: #### L 100.0100, L500.4100, L500.4050, L501.9520 ####[facility] [address] [place], [address] Chloride [Moles/Vol] 105 mmol/L Normal 98-108 [facility] Comment on above: Performed By: #### L 100.0100, L500.4100, L500.4050, [id number] ####[facility] [address] [place], [address] CO2 [Moles/Vol] 26.6 mmol/L Normal 21.0-32.0 [facility] Comment on above: Performed By: #### L 100.0100, L500.4100, L500.4050, [id number] ####[facility] [address] [place], [address] Creatinine [Mass/Vol] 0.90 mg/dL Normal 0.70-1.20 [facility] Comment on above: Performed By: #### L 100.0100, L500.4100, L500.4050, [id number] ####[facility] [address] [place], [address] GAP 11 Normal 5-15 [facility] Comment on above: Performed By: #### L 100.0100, L500.4100, L500.4050, [id number] ####[facility] [address] [place], [address] GFR/1.73 sq M.predicted among non-blacks MDRD (S/P/Bld) [Vol rate/Area] 68 mL/min/{1.73_m2} Normal >60 [facility] Comment on above: Result Comment: mL/m in/1.73m2 CKD-EPI Creatinine Equation (2020) Performed By: #### L 100.0100, L500.4100, L500.4050, L501.9520 ####[facility] [address] [place], [address] Glucose [Mass/Vol] 117 mg/dL High 70-99 [facility] Comment on above: Performed By: #### L 100.0100, L500.4100, L500.4050, L501.9520 ####[facility] [address] [place], [address] Potassium [Moles/Vol] 3.7 mmol/L Normal 3.3-5.1 [facility] Comment on above: Performed By: #### L 100.0100, L500.4100, L500.4050, L501.9520 ####[facility] [address] [place], [address] Sodium [Moles/Vol] 143 mmol/L Normal 133-145 [facility] Comment on above: Performed By: #### L 100.0100, L500.4100, L500.4050, L501.9520 ####[facility] [address] [place], [address] T PROT 7.4 g/dL Normal 5.9-8.4 [facility] Comment on above: Performed By: #### L 100.0100, L500.4100, L500.4050, L501.9520 ####[facility] [address] [place], [address] Urea nitrogen [Mass/Vol] 16 mg/dL Normal 4-19 [facility] Comment on above: Performed By: #### L 100.0100, L500.4100, L500.4050, L501.9520 ####[facility] [address] [place], [address] Eosinophil percentageOrdered By: Marifer Mukherjee on 09-05-2024 Eosinophils/100 WBC (Bld) 3.2 % 0-5 [facility] Erythrocyte distribution wid th (RBC) [Ratio]Ordered By: Marifer Mukherjee on 09-05-2024 Erythrocyte distribution width (RBC) [Entitic vol] 44.3 fL High 35.1-43.9 [facility] Erythrocyte distribution wid th ratioOrdered By: Marifer Mukherjee on 09-05-2024 Erythrocyte distribution width (RBC) [Ratio] 13.3 % 11.6-14.6 [facility] Erythrocyte distribution wid th standard deviationOrdered By: Marifer Mukherjee on 09-05-2024 Erythrocyte distribution width (RBC) [Ratio] 44.3 fl High 35.1-43.9 [facility] GFR/1.73 sq M.predicted nidia g non-blacks MDRD (S/P/Bld) [Vol rate/Area]Ordered By: Marifer Mukherjee on 09-05-2024 Estimated GFR (MDRD) Non-Af Amer 68 >60 [facility] Comment on above: mL/min/1.73m2 CKD-EP I Creatinine Equation (2020) Glomerular filtration rate ( GFR) estimation/1.73 sq m using serum, plasma, or whole bOrdered By: Marifer Mukherjee on 09-05-2024 GFR/1.73 sq M.predicted among non-blacks MDRD (S/P/Bld) [Vol rate/Area] 68 mL/min/{1.73_m2} >60 [facility] Comment on above: mL/min/1.73m2 CKD-EP I Creatinine Equation (2020) Hematocrit Auto (Bld) [Volum e fraction]Ordered By: Marifer Mukherjee on 09-05-2024 Hematocrit (Bld) [Volume fraction] 39.2 % 37-47 [facility] Hemoglobin A1c percentageOrd ered By: Marifer Mukherjee on 09-05-2024 HbA1c (Bld) [Mass fraction] 6.0 % High <5.7 [facility] Comment on above: Normal < 5.7 % Predi abetic 5.7 - 6.4 % Diabetic >or= 6.5 % Please note range changes. Hemoglobin measurementOrdere d By: Marifer Mukherjee on 09-05-2024 Hemoglobin (Bld) [Mass/Vol] 12.8 g/dL 12.0-15.0 [facility] Immature granulocytes/100 WB C Auto (Bld)Ordered By: Marifer Mukherjee on 09-05-2024 Immature granulocytes/100 WBC (Bld) 0.000 % 0.0-0.9 [facility] Comment on above: IG% - Immature Granu locytes (promyelocytes, myelocytes and metamyelocytes) > 1% indicates that a LEFT SHIFT is Present. Internal Medicine Office Vis lisa 09-05-2024 Internal Medicine Office Visit [facility] [address] [place] [address] [address] [place], [place] [address] OFFICE VISIT Date of Service: 09/05/24 MR#: [id number] Acct: [id number] Name: BAILEY BEST Rep #: [id number] : 1955 Provider: Dr. Marifer solis MD Age/Sex: 69/F Location: [facility] Status: Signed Intake Vital Signs 03/07/24 10:20 09/05/24 10:18 Height 5 ft 5 in 5 ft 5 in Weight: 190 lb BMI 31.6 BP 132/68 H Blood Pressure Location Lt brachial Position Sitting Respiration 18 Pulse 84 Pulse Source Monitor Temp 98.2 F Temp Source Temporal Pulse Oximetry (%) 96 Oxygen Delivery Method room air Intake Visit Reasons: 6 M FU Chief Complaint: 6 M FU Is patient in pain?: No Allergies Seasonal Allergies: Uncoded Allergy (Mild, Verified 09/05/24 10:18) sneezing Medications ???Medication ???Instructions ???Recorded ???Confirmed ???Type multivitamin 1 tab PO DAILY 06/29/23 09/05/24 H istory Vit D 2000 PO 09/02/23 09/05/24 History calcium 600 PO 09/02/23 09/05/24 History levothyroxine 75 mcg tablet 75 mcg PO DAILY #60 tabs 06/02/24 09/05/24 Rx minoxidil 2.5 mg tablet 2.5 mg PO QDAY 09/05/24 09/05/24 H istory Have you fallen in the past year?: Yes (x1) [facility] Medical History (Updated 09/05/24 @ 12:[address] Marifer Mukherjee MD) At risk for diabetes mellitus Family history of early CAD At risk for cardiovascular event Osteopenia Hypothyroidism Health care maintenance Hair loss Nocturia Trigger finger Gallstones Back problem Arthritis Anemia Allergies Surgical History Status post tendon repair History of cholecystectomy H/O tubal ligation Family History Sister Alcoholism Brother Alcoholism Arthritis Father Alcoholism Myocardial infarction, Onset Age: 60 Heart disease Mother Arthritis Heart disease Vitiligo Aunt Cancer Uncle Cancer Grandmother Diabetes Social History current occupational status: retired Smoking Status: Never smoker alcohol intake: current alcohol intake frequency: holidays/special occasions only Alcohol type: wine substance use type: does not use what type of physical activity do you participate in: walking frequency: 3-4 times per week kevin/sabianism: None seatbelt use: always do you feel safe at home: Yes HPI HPI Chief Complaint: 6 M FU Details: BAILEY BEST, is a 69 F who presents to the office today for follow-up. She is concerned that she may have diabetes. She states that she has a significant family history for in her maternal relatives and grandmother. Borderline elevated fasting sugar in the past. Also concerned about her family history of coronary artery disease. Her father had his first heart attack in his 60s. Her daughter also had a heart attack at age 44. No tobacco or alcohol abuse History of hypothyroidism, most recent TSH was within range. She states that she is taking her medication consistently. No heat or cold intolerance or unintentional weight changes ROS Const Constitutional: No body ache, chills, excessive sweating, fatigue, fever(s), frequent falls, headache(s), snoring, weight change, sleep problems, abnormal sleep pattern or change in appetite Eyes Eyes: No blurry vision, change in vision, dry eyes, bulging eyes, floaters, visual disturbances, eye pain or Light sensitivity ENT ENT: No abnormal hearing, ear or mastoid pain, tinnitus, balance problems, nosebleed/epistaxis , nasal congestion, headache(s), neck pain or sore throat Resp Respiratory: No cough, excessive phlegm production, pain on inspiration, shortness of breath, snoring or wheezing Cardio Cardiology: No chest pain at rest, chest pain with exertion, excessive sweating, shortness of breath, dyspnea on exertion, lightheadedness, orthopnea or palpitations Gastro GI: No abdominal pain, change in bowel habits, constipation, cramping, diarrhea, nausea/dyspepsia or vomiting Genitourinary-Femal e: No burning urination, painful urination, urinary incontinence, urinary frequency, suprapubic fullness, side pain, abnormal vaginal bleeding or pelvic pain Musc Musculoskeletal: No abnormal gait, joint pain, back pain, limited range of motion, neck pain, numbness or tingling Skin Skin: No dry skin, redness, excessive hair growth, yellowing of the eye, lesions, itchy eyes, rash or wounds Neuro Neurology: No abnormal gait, abnormal hearing, frequent falls, headache(s), memory loss, numbness, tingling or visual disturbances Psych Psychiatric: No abnormal sleep pattern, No anxiety, No change in appetite, No irritability, No memory loss and No Thoughts of harming yourself/Others Endo Endocrine: No cold int (more content not included)... Normal [facility] LDL calc ser/plasOrdered By: Marifer Mukherjee on 09-05-2024 Cholesterol in LDL [Mass/Vol] 119 mg/dL [facility] Comment on above: Jqivdsiojx=734-702 m g/dL & Higher Sgnl=970 mg/dL or greater LDL Cholesterol, Calculated 119 mg/dL [facility] Comment on above: Hcnfmfzydx=039-769 m g/dL & Higher Jpiy=579 mg/dL or greater Laboratory - Chemistry and C hemistry - challengeOrdered By: Marifer Mukherjee on 09-05-2024 AST [Catalytic activity/Vol] 24 U/L <32 [facility] Lipid Profileon 09-05-2024 CHOL:HDL 3.11 Normal [facility] Comment on above: Performed By: #### L 100.0100, L500.4100, L500.4050, L501.9520 ####[facility] [address] [place], [place], [id number] Cholesterol [Mass/Vol] 209 mg/dL High <=200 [facility] Comment on above: Result Comment: Chol esterol level, Desirable <200 mg/dL Borderline high cholesterol 200-239 mg/dL High cholesterol >=240 mg/dL Recommendations of the NCEP Adult Treatment Panel for the following risk-cutoff thresholds for the [place] population. Performed By: #### L 100.0100, L500.4100, L500.4050, L501.9520 ####[facility] [address] [place], [address] Cholesterol in HDL [Mass/Vol] 67 mg/dL Normal [facility] Comment on above: Result Comment: Jenise onal Cholesterol Education Program (NCEP) guidelines: <40 mg/dL: Low HDL-cholesterol (major risk factor for CHD) >= 60 mg/dL: High HDL-cholesterol (negative risk factor for CHD) HDL-cholesterol is affected by a number of factors, e.g. smoking, exercise, hormones, sex and age. Performed By: #### L 100.0100, L500.4100, L500.4050, L501.9520 ####[facility] [address] [place], [address] Cholesterol in LDL [Mass/Vol] 119 mg/dL Normal [facility] Comment on above: Result Comment: Bord uvvfka=704-629 mg/dL Higher Clbd=890 mg/dL or greater Performed By: #### L 100.0100, L500.4100, L500.4050, L501.9520 ####[facility] [address] [place], [address] Cholesterol in VLDL [Mass/Vol] 23 mg/dL Normal 5-40 [facility] Comment on above: Performed By: #### L 100.0100, L500.4100, L500.4050, L501.9520 ####[facility] [address] [place], [address] Triglyceride [Mass/Vol] 113 mg/dL Normal [facility] Comment on above: Result Comment: The drugs N-Acetylcysteine and Metamizole may falsely depress this assay. Normal range: <150 mg/dL Borderline High: 150-199 mg/dL High: 200-499 mg/dL Very High: >500 mg/dL Performed By: #### L 100.0100, L500.4100, L500.4050, L501.9520 ####[facility] [address] [place], [address] Lymphocytes Auto (Unsp spec) [#/Vol]Ordered By: Marifre Mukherjee on 09-05-2024 Lymphocytes (Bld) [#/Vol] 1.34 10*3/uL 0.83-4.5 1 [facility] Lymphocytes/100 WBC Auto (Un sp spec)Ordered By: Marifer Mukherjee on 09-05-2024 Lymphocytes/100 WBC (Bld) 23.6 % 19-41 [facility] MCV (mean corpuscular volume ) determinationOrdered By: Marifer Mukherjee on 09-05-2024 MCV (RBC) [Entitic vol] 90.3 fL 81-99 [facility] Mean corpuscular hemoglobin (MCH) determinationOrdered By: Marifer Mukherjee on 09-05-2024 MCH (RBC) [Entitic mass] 29.5 pg 27.0-32.0 [facility] Mean corpuscular hemoglobin concentration (MCHC) determinationOrdered By: Marifer Mukherjee on 09-05-2024 MCHC (RBC) [Mass/Vol] 32.7 g/dL 32-36 [facility] Mean platelet volume determi nationOrdered By: Marifer Mukherjee on 09-05-2024 Platelet mean volume (Bld) [Entitic vol] 10.9 fL 6.2-12.0 [facility] Monocyte percentageOrdered B y: Marifer Mukherjee on 09-05-2024 Monocytes/100 WBC (Bld) 6.5 % 0-10 [facility] Neutrophil percentageOrdered By: Marifer Mukherjee on 09-05-2024 Neutrophils/100 WBC (Bld) 66.3 % 47-70 [facility] Nucleated red blood cell per centageOrdered By: Marifer Mukherjee on 09-05-2024 Nucleated RBC/100 WBC (Bld) [Ratio] 0 % 0-5 [facility] Platelet countOrdered By: Lissa Mukherjee on 09-05-2024 Platelets (Bld) [#/Vol] 274 10*3/uL 150-450 [facility] Potassium (Unsp spec) [Mass/ Vol]Ordered By: Marifer Mukherjee on 09-05-2024 Potassium [Moles/Vol] 3.7 mmol/L 3.3-5.1 [facility] Potassium measurement (mass/ volume)Ordered By: Marifer Mukherjee on 09-05-2024 Potassium (Unsp spec) [Mass/Vol] 3.7 mmol/L 3.3-5.1 [facility] RBC Auto (Bld) [#/Vol]Ordere d By: Marifer Mukherjee on 09-05-2024 RBC (Bld) [#/Vol] 4.34 10*6/uL 4.2-5.4 [facility] Screening total cholesterol/ high density lipoprotein (HDL) cholesterol ratioOrdered By: Marifer Mukherjee on 09-05-2024 Cholesterol.total/Cholest anthony in HDL [Mass ratio] 3.11 {ratio} [facility] Serum creatinine measurement (mass/volume)Ordered By: Marifer Mukherjee on 09-05-2024 Creatinine [Mass/Vol] 0.90 mg/dL 0.70-1.20 [facility] Serum globulin measurementOr dered By: Marifer Mukherjee on 09-05-2024 Globulin (S) [Mass/Vol] 3.4 g/dL 2.2-4.2 [facility] Serum glucose measurement (m ass/volume)Ordered By: Marifer Mukherjee on 09-05-2024 Glucose [Mass/Vol] 117 mg/dL High 70-99 [facility] Serum or plasma alanine webb otransferase (ALT) measurementOrdered By: Marifer Mukherjee on 09-05-2024 ALT [Catalytic activity/Vol] 13 U/L <35 [facility] Serum or plasma albumin madhu urement (mass/volume)Ordered By: Marifer Mukherjee 09-05-2024 Albumin [Mass/Vol] 4.0 g/dL 3.4-4.8 [facility] Serum or plasma albumin/glob ulin mass ratioOrdered By: Marifer Mukherjee on 09-05-2024 Albumin/Globulin [Mass ratio] 1.2 {ratio} 0.9-2.4 [facility] Serum or plasma alkaline tacho sphatase measurementOrdered By: Marifer Mukherjee 09-05-2024 ALP [Catalytic activity/Vol] 91 U/L 35-104 [facility] Serum or plasma calcium madhu urement (mass/volume)Ordered By: Marifer Mukherjee 09-05-2024 Calcium [Mass/Vol] 9.3 mg/dL 7.6-11.0 [facility] Serum or plasma cholesterol in HDL measurement (mass/volume)Ordered By: Marifer Mukherjee on 09-05-2024 Cholesterol in HDL [Mass/Vol] 67 mg/dL >40 [facility] Comment on above: National Cholesterol Education Program (NCEP) guidelines:<40 mg/dL: Low HDL-cholesterol (major risk factor for CHD)>= 60 mg/dL: High HDL-cholesterol (negative risk factor for CHD)HDL-cholesterol is affected by a number of factors, e.g. smoking, exercise, hormones, sex and age. Serum or plasma cholesterol measurement (mass/volume)Ordered By: Marifer Mukherjee on 09-05-2024 Cholesterol [Mass/Vol] 209 mg/dL High <201 [facility] Comment on above: Cholesterol level, D esirable <200 mg/dLBorderline high cholesterol 200-239 mg/dLHigh cholesterol >=240 mg/dLRecommendations of the NCEP Adult Treatment Panel for the following risk-cutoff thresholds for the [place] population. Serum or plasma urea nitroge n measurement (mass/volume)Ordered By: Marifer Mukherjee on 09-05-2024 Urea nitrogen [Mass/Vol] 16 mg/dL 4-19 [facility] Sodium levelOrdered By: Gulshan Mukherjee on 09-05-2024 Sodium [Moles/Vol] 143 mmol/L 133-145 [facility] TSH DL <= 0.005 mIU/L QnOrde red By: Marifer Mukherjee on 09-05-2024 Thyroid Stimulating Hormone (TSH) 0.873 uIU/mL 0.300-4.200 [facility] TSH Qn 0.873 uIU/mL 0.300-4.200 [facility] Thyroid Stim Hormone (TSH)on 09-05-2024 TSH 0.873 uIU/mL Normal 0.300-4.200 [facility] Comment on above: Performed By: #### L 100.0100, L500.4100, L500.4050, L501.9520 ####[facility] [address] [place], [address] Total proteinOrdered By: Maicol Mukherjee on 09-05-2024 Protein [Mass/Vol] 7.4 g/dL 5.9-8.4 [facility] Triglycerides measurementOrd ered By: Marifer Mukherjee on 09-05-2024 Triglyceride [Mass/Vol] 113 mg/dL <199 [facility] Comment on above: The drugs N-Acetylcy steine and Metamizole may falsely depress this assay. Normal range: <150 mg/dLBorderline High: 150-199 mg/dLHigh: 200-499 mg/dLVery High: >500 mg/dL White blood cell (WBC) count Ordered By: Marifer Mukherjee on 09-05-2024 WBC (Bld) [#/Vol] 5.7 10*3/uL 4.4-11.0 [facility] T4 Free Directon 07-20-2024 T4 FREE DIRECT 1.40 ng/dL Normal 0.76-1.46 [facility] Comment on above: Performed By: #### L 501.9520, L506.0400 #### [facility] [address] [facility] [place], [place], [id number] T4 freeOrdered By: Marifer Mukherjee on 07-20-2024 Free T4 [Mass/Vol] 1.40 ng/dL 0.76-1.46 [facility] TSH DL <= 0.005 mIU/L QnOrde red By: Marifer Mukherjee on 07-20-2024 Thyroid Stimulating Hormone (TSH) 0.943 uIU/mL 0.300-4.200 [facility] Thyroid Stim Hormone (TSH)on 07-20-2024 TSH 0.943 uIU/mL Normal 0.300-4.200 [facility] Comment on above: Performed By: #### L 501.9520, L506.0400 #### [facility] [address] [facility] [place], [place], [id number] TSH QnOrdered By: Marifer Mukherjee on 05-31-2024 Thyroid Stimulating Hormone (TSH) 5.340 uIU/mL High 0.358-3.740 [facility] Thyroid Stim Hormone (TSH)on 05-31-2024 TSH 5.340 uIU/mL High 0.358-3.740 [facility] Comment on above: Performed By: #### L 501.9520 #### [facility] [address] [facility] [address] TSH QnOrdered By: Marifer Mukherjee on 04-12-2024 Thyroid Stimulating Hormone (TSH) 3.980 uIU/mL High 0.358-3.740 [facility] Thyroid Stim Hormone (TSH)on 04-12-2024 TSH 3.980 uIU/mL High 0.358-3.740 [facility] Comment on above: Performed By: #### L 501.9520 #### [facility] [address], [place], [address] Internal Medicine Office Vis iton 03-07-2024 Internal Medicine Office Visit [facility], [id number] [place] [address] [place] [address] OFFICE VISIT Date of Service: 03/07/24 MR#: [id number] Acct: [id number] Name: BAILEY BEST Tamika Rep #: [id number] : 1955 Provider: Dr. 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 Marifer Mukherjee MD) Osteopenia Hypothyroidism Health care maintenance Hair loss Nocturia Trigger finger Gallstones Back problem Arthritis Anemia Allergies Surgical History Status post tendon repair History of cholecystectomy H/O tubal ligation Family History Sister Alcoholism Brother Alcoholism Arthritis Father Alcoholism Myocardial infarction, Onset Age: 60 Heart disease Mother Arthritis Heart disease Vitiligo Aunt Cancer Uncle Cancer Grandmother Diabetes Social History current occupational status: retired Smoking Status: Never smoker alcohol intake: current alcohol intake frequency: holidays/special occasions only Alcohol type: wine substance use type: does not use what type of physical activity do you participate in: walking frequency: 3-4 times per week kevin/sabianism: None seatbelt use: always do you feel safe at home: Yes HPI HPI Chief Complaint: Follow-up chronic conditions Details: BAILEY BEST, is a 69 F who presents to the office today for follow-up of her chronic medical conditions. No acute concerns at this time. History of hypothyroidism on levothyroxine. Last TSH high at 9. Taking levothyroxine consistently. Has made adjustments as recommended. No heat or cold intolerance or unintentional weight changes. Other chronic conditions are stable. ROS Const Constitutional: No body ache, chills, excessive sweating, fatigue, fever(s), frequent falls, headache(s), snoring, weakness, sleep problems or change in appetite Eyes Eyes: No blurry vision, change in vision, floaters, visual disturbances, eye pain or Light sensitivity ENT ENT: No abnormal hearing, ear or mastoid pain, tinnitus, balance problems, nosebleed/epistaxis , nasal congestion, headache(s), neck pain or sore throat Resp Respiratory: No cough, excessive phlegm production, pain on inspiration, shortness of breath, snoring or wheezing Cardio Cardiology: No chest pain at rest, chest pain with exertion, excessive sweating, shortness of breath, dyspnea on exertion, lightheadedness, orthopnea or palpitations Gastro GI: No abdominal pain, change in bowel habits, constipation, cramping, diarrhea, nausea/dyspepsia or vomiting Genitourinary-Femal e: No burning urination, painful urination, urinary incontinence, urinary frequency, abnormal vaginal bleeding or pelvic pain Musc Musculoskeletal: No abnormal gait, joint pain, back pain, limited range of motion, neck pain or numbness Skin Skin: No dry skin, redness, excessive hair growth, yellowing of the eye, lesions, itchy eyes, rash or wounds Neuro Neurology: No abnormal gait, abnormal hearing, behavioral changes, unsteady gait/balance, weakness, frequent falls, headache(s), memory loss, numbness or visual disturbances Psych Psychiatric: No anxiety, No behavioral changes, No change in appetite, No depression, No memory loss and No Thoughts of harming yourself/Others Endo Endocrine: No cold intolerance, excessive sweating, fatigue, flushing, heat intolerance, increased thirst/drinking or increased hunger Aller/Imm Allergy/Immunologic : No itchy eyes, seasonal allergy symptoms, hives or wheezing Quinten/Lymp Hematologic/Lymphat ic: No easy bleeding, easy bruising, enlarged lymph nodes or other Exam Const General: cooperative, comfortable and no acute distress Orientation: alert, awake (more content not included)... Normal [facility] Thyroid Stim Hormone (TSH)on 02-24-2024 TSH 9.060 uIU/mL High 0.358-3.740 [facility] Comment on above: Performed By: #### L 501.9520 #### [facility] Laboratory [facility] [place], [address] Serum or plasma thyroid stim ulating hormone (TSH) measurement (units/volume)Ordered By: Marifer Mukherjee on 08-25-2023 TSH Qn 3.45 uIU/mL 0.358-3.74 [facility] Absolute lymphocyte countOrd ered By: Marifer Mukherjee on 07-06-2023 Lymphocytes Auto (Unsp spec) [#/Vol] 1.31 10*3/uL 0.83-4.51 [facility] Automated lymphocyte count a s percentage of total leukocytesOrdered By: Marifer Mukherjee on 07-06-2023 Lymphocytes/100 WBC Auto (Unsp spec) 26.7 % 19-41 [facility] Basophil percentageOrdered B y: Marifer Mukherjee on 07-06-2023 Basophil percentage 10-25 SEEN /hpf 0-5 [facility] Basophils/100 WBC (Bld) 0.4 % 0-1 [facility] Bilirubin [Mass/Vol] 0.50 mg/dL 0.20-1.00 [facility] Comment on above: For patients on eltr ombopag therapy, use of Dimension Schneider TBIL is not recommended. Chloride [Moles/Vol] 110 mmol/L 98-107 [facility] Cholesterol [Mass/Vol] 210 mg/dL <200 [facility] Comment on above: <200 mg/dL Desirable 200-240 mg/dL Borderline >240 mg/dL High Risk Eosinophils/100 WBC (Bld) 4.3 % 0-5 [facility] Glucose [Mass/Vol] 94 mg/dL 74-106 [facility] Hemoglobin (Bld) [Mass/Vol] 12.6 g/dL 12.0-15.0 [facility] Monocytes/100 WBC (Bld) 7.8 % 0-10 [facility] Neutrophils (Bld) [#/Vol] 3.0 10*3/uL 2.0-7.7 [facility] Neutrophils/100 WBC (Bld) 60.6 % 47-70 [facility] Potassium [Moles/Vol] 4.1 mmol/L 3.5-5.1 [facility] Protein [Mass/Vol] 7.6 g/dL 6.4-8.2 [facility] Sodium [Moles/Vol] 143 mmol/L 136-145 [facility] Triglyceride [Mass/Vol] 91 mg/dL <199 [facility] Comment on above: The drugs N-Acetylcy steine and Metamizole may falsely depress this assay.Serum Triglycerides Reference Interval Normal <150 mg/dL Borderline high 150 - 199 mg/dL High 200 - 499 mg/dL Very High > or = 500 mg/dL WBC (Bld) [#/Vol] 4.9 10*3/uL 4.4-11.0 [facility] Bilirubin Test strip Ql (U)O rdered By: Marifer Mukherjee on 07-06-2023 Bilirubin Ql (U) Negative Negative [facility] Determination of erythrocyte mean corpuscular volume (MCV)Ordered By: Marifer Mukherjee on 07-06-2023 MCV (RBC) [Entitic vol] 90.9 fL 81-99 [facility] Erythrocyte distribution wid th ratioOrdered By: [facility] Mukher[facility] on 07-06-2023 Erythrocyte distribution width (RBC) [Ratio] 13.6 % 11.6-14.6 [facility] Erythrocyte distribution wid th standard deviationOrdered By: [facility] Merapanda on 07-06-2023 Erythrocyte distribution width (RBC) [Entitic vol] 45.5 fL 35.1-43.9 [facility] Hematocrit Auto (Bld) [Volum e fraction]Ordered By: Marifer Mukherjee on 07-06-2023 Hematocrit (Bld) [Volume fraction] 38.8 % 37-47 [facility] Immature granulocytes/100 WB C Auto (Bld)Ordered By: meghan Mukherjee on 07-06-2023 Immature granulocytes/100 WBC (Bld) 0.200 % 0.0-0.9 [facility] Comment on above: IG% - Immature Granu locytes (promyelocytes, myelocytes and metamyelocytes) > 1% indicates that a LEFT SHIFT is Present. Ketones Test strip Ql (U)Ord ered By: Marifer Mukherjee on 07-06-2023 Ketones Ql (U) Negative Negative [facility] Laboratory - Chemistry and C hemistry - challengeOrdered By: Marifer Mukherjee on 07-06-2023 Albumin/Globulin [Mass ratio] 0.8 {ratio} 0.9-2.4 [facility] ALP [Catalytic activity/Vol] 99 U/L 45-117 [facility] ALT [Catalytic activity/Vol] 19 U/L 13-56 [facility] Cholesterol in HDL [Mass/Vol] 64 mg/dL >40 [facility] Comment on above: The drugs N-Acetylcy steine and Metamizole may falsely depress this assay. Reference Range HDL <40 mg/dL Low HDL Cholesterol HDL >or= 60 mg/dL High HDL Cholesterol Cholesterol in LDL [Mass/Vol] 128 mg/dL 0-130 [facility] CO2 [Moles/Vol] 29.0 mmol/L 21.0-32.0 [facility] Globulin (S) [Mass/Vol] 4.3 g/dL 2.2-4.2 [facility] Urea nitrogen/Creatinine [Mass ratio] 18.1 mg/mg 10-20 [facility] Laboratory - Hematology and Cell countsOrdered By: Marifer Mukherjee on 07-06-2023 MCH (RBC) [Entitic mass] 29.5 pg 27.0-32.0 [facility] MCHC (RBC) [Mass/Vol] 32.5 g/dL 32-36 [facility] Nucleated RBC/100 WBC (Bld) [Ratio] 0 % 0-5 [facility] Platelet mean volume (Bld) [Entitic vol] 10.7 fL 6.2-12.0 [facility] Platelets (Bld) [#/Vol] 270 10*3/uL 150-450 [facility] Mucus LM Ql (Urine sed)Order ed By: Marifer Mukherjee on 07-06-2023 Mucus Ql (Urine sed) 0 SEEN /hpf [facility] Nitrite Test strip Ql (U)Ord ered By: Marifer Mukherjee on 07-06-2023 Nitrite Ql (U) Negative Negative [facility] No Panel InformationOrdered By: Marifer Mukherjee on 07-06-2023 Urine RBC 0-5 SEEN /hpf 0-5 [facility] Estimated GFR (MDRD) Amer 81 mL/min >60 [facility] Comment on above: GFR Calc Estimated GFR (MDRD) Non-Af Amer 67 mL/min >60 [facility] Comment on above: Non- GFR Calc VLDL Cholesterol 18 mg/dL 5-40 [facility] Protein Test strip Ql (U)Ord ered By: Marifer Mukherjee on 07-06-2023 Protein Ql (U) 30 mg/dl Negative [facility] RBC Auto (Bld) [#/Vol]Ordere d By: Marifer Mukherjee on 07-06-2023 RBC (Bld) [#/Vol] 4.27 10*6/uL 4.2-5.4 [facility] Serum or plasma calcium madhu urement (mass/volume)Ordered By: Marifer Mukherjee on 07-06-2023 Calcium [Mass/Vol] 9.0 mg/dL 8.5-10.1 [facility] Serum or plasma creatinine m easurement (mass/volume)Ordered By: Marifer Mukherjee on 07-06-2023 Creatinine [Mass/Vol] 0.89 mg/dL 0.55-1.02 [facility] Comment on above: The validity of the calculated GFR & GFRAA in patients over 70 years has not been determined. Clinical correlation is essential. Serum or plasma thyroid stim ulating hormone (TSH) measurement (units/volume)Ordered By: Marifer Mukherjee on 07-06-2023 TSH Qn 15.80 uIU/mL 0.358-3.74 [facility] Serum or plasma urea nitroge n measurement (mass/volume)Ordered By: Marifer Mukherjee on 07-06-2023 Urea nitrogen [Mass/Vol] 16 mg/dL 7-18 [facility] Squamous epithelial cells de tection in urine sediment by light microscopyOrdered By: Marifer Mukherjee on 07-06-2023 Epithelial cells.squamous LM Ql (Urine sed) 0-5 SEEN /hpf 5-10 [facility] Thin prep Papanicolaou smear with manual screeningOrdered By: Marifer Mukherjee on 07-06-2023 Thin prep Papanicolaou smear with manual screening 3.3 g/dL 3.2-5.0 [facility] Thin prep Papanicolaou smear with manual screening 20 U/L 15-37 [facility] Thin prep Papanicolaou smear with manual screening 4 5-15 [facility] Thin prep Papanicolaou smear with manual screening 0.69 ng/dL 0.76-1.46 [facility] Urine blood detectionOrdered By: Marifer Mukherjee on 07-06-2023 RBC Ql (U) 25 /ul Negative [facility] Urine clarityOrdered By: Maicol Mukherjee on 07-06-2023 Clarity (U) Clear Clear [facility] Urine color determinationOrd ered By: Marifer Mukherjee on 07-06-2023 Color (U) Yellow Yellow [facility] Urine glucose detectionOrder ed By: Marifer Mukherjee on 07-06-2023 Glucose Ql (U) Normal mg/dl Normal [facility] Urine leukocyte esterase det ection by dipstickOrdered By: Marifer Mukherjee on 07-06-2023 Leukocyte esterase Test strip Ql (U) 100 /ul Negative [facility] Urine pHOrdered By: Dennis Mukherjee on 07-06-2023 pH (U) 5.0 [pH] 5.0 - 8.0 [facility] Urine sediment bacteria coun t by microscopy (number/high power field)Ordered By: Marifer Mukherjee on 07-06-2023 Bacteria LM.HPF (Urine sed) [#/Area] 1 /[HPF] None Seen [facility] Urine specific gravity measu rementOrdered By: Marifer Mukherjee on 07-06-2023 Specific gravity (U) [Rel density] 1.020 1.002-1.030 [facility] Urine urobilinogen measureme ntOrdered By: Marifer Mukherjee on 07-06-2023 Urobilinogen Ql (U) Normal mg/dl Normal [facility] Basophil percentageon 2021 Chloride [Moles/Vol] 106 mmol/L 98-107 [facility] Work Phone: Glucose [Mass/Vol] 106 mg/dL 74-106 [facility] Work Phone: Comment on above: Fasting Glucose resu lt from 100 to 125 mg/dL suggests IMPAIRED HOMEOSTASIS per A.D.A. criteria. Potassium [Moles/Vol] 4.2 mmol/L 3.5-5.1 [facility] Work Phone: Sodium [Moles/Vol] 139 mmol/L 136-145 [facility] Work Phone: Laboratory - Chemistry and C hemistry - challengeon 08-09-2021 CO2 [Moles/Vol] 31.0 mmol/L 21.0-32.0 [facility] Work Phone: Urea nitrogen/Creatinine [Mass ratio] 23.2 mg/mg 10-20 [facility] Work Phone: No Panel Informationon 08-09 Estimated GFR (MDRD) Amer 84 mL/min >60 [facility] Work Phone: Comment on above: GFR Calc Estimated GFR (MDRD) Non-Af Amer 69 mL/min >60 [facility] Work Phone: Comment on above: Non- GFR Calc Serum or plasma calcium madhu urement (mass/volume)on 08-09-2021 Calcium [Mass/Vol] 8.7 mg/dL 8.5-10.1 [facility] Work Phone: Serum or plasma creatinine m easurement (mass/volume)on 08-09-2021 Creatinine [Mass/Vol] 0.86 mg/dL 0.55-1.02 [facility] Work Phone: Comment on above: The validity of the calculated GFR & GFRAA in patients over 70 years has not been determined. Clinical correlation is essential. Serum or plasma urea nitroge n measurement (mass/volume)on 08-09-2021 Urea nitrogen [Mass/Vol] 20 mg/dL 12-09 [facility] Work Phone: Thin prep Papanicolaou smear with manual screeningon 08-09-2021 Thin prep Papanicolaou smear with manual screening 2 5-15 [facility] Work Phone: Vital Signs Date Time Vital Sign Value Performing Clinician Byron causey 12-21-2024 07:40-0400 Body height 165.[address] Marifer Mukherjee MD Work Phone: [facility] 12-21-2024 07:40-0400 Body mass index (BMI) [Ratio] 30.3 kg/m2 Dr. Marifer Mukherjee MD Work Phone: [facility] 12-21-2024 07:40-0400 Body temperature 97.7 [degF] Dr. Marifer Mukherjee MD Work Phone: [facility] 12-21-2024 07:40-0400 Body weight 82.[address] Marifer Mukherjee MD Work Phone: [facility] 12-21-2024 07:40-0400 Diastolic blood pressure 58 mm[Hg] Dr. Marifer Mukherjee MD Work Phone: [facility] 12-21-2024 07:40-0400 Heart rate 83 /min Dr. Marifer Mukherjee MD Work Phone: [facility] 12-21-2024 07:40-0400 Respiratory rate 16 /min Dr. Marifer Mukherjee MD Work Phone: [facility] 12-21-2024 07:40-0400 SaO2% (BldA) [Mass fraction] 96 % Dr. Marifer Mukherjee MD Work Phone: [facility] 12-21-2024 07:40-0400 Systolic blood pressure 110 mm[Hg] Dr. Marifer Mukherjee MD Work Phone: [facility] 09-05-2024 10:18-0400 Body height 165.[address] Marifer Mukherjee MD Work Phone: [facility] 09-05-2024 10:18-0400 Body mass index (BMI) [Ratio] 31.6 kg/m2 Dr. Marifer Mukherjee MD Work Phone: [facility] 09-05-2024 10:18-0400 Body temperature 98.2 [degF] Dr. Marifer Mukherjee MD Work Phone: [facility] 09-05-2024 10:18-0400 Body weight 86.[address] Marifer Mukherjee MD Work Phone: [facility] 09-05-2024 10:18-0400 Diastolic blood pressure 68 mm[Hg] Dr. Marifer Mukherjee MD Work Phone: [facility] 09-05-2024 10:18-0400 Heart rate 84 /min Dr. Marifer Mukherjee MD Work Phone: [facility] 09-05-2024 10:18-0400 Respiratory rate 18 /min Dr. Marifer Mukherjee MD Work Phone: [facility] 09-05-2024 10:18-0400 SaO2% (BldA) [Mass fraction] 96 % Dr. Marifer Mukherjee MD Work Phone: [facility] 09-05-2024 10:18-0400 Systolic blood pressure 132 mm[Hg] Dr. Marifer Mukherjee MD Work Phone: [facility] 06-29-2023 13:24-0500 Body height 165.1 cm No Primary Care Physician [facility] 06-29-2023 13:24-0500 Body mass index (BMI) [Ratio] 31.1 kg/m2 No Primary Care Physician [facility] 06-29-2023 13:24-0500 Body temperature 97.8 [degF] No Primary Care Physician [facility] 06-29-2023 13:24-0500 Body weight 84.82 kg No Primary Care Physician [facility] 06-29-2023 13:24-0500 Diastolic blood pressure 72 mm[Hg] No Primary Care Physician [facility] 06-29-2023 13:24-0500 Heart rate 79 /min No Primary Care Physician [facility] 06-29-2023 13:24-0500 Respiratory rate 16 /min No Primary Care Physician [facility] 06-29-2023 13:24-0500 SaO2% (BldA) [Mass fraction] 98 % No Primary Care Physician [facility] 06-29-2023 13:24-0500 Systolic blood pressure 118 mm[Hg] No Primary Care Physician [facility] Encounters Encounter Date Encounter Type Care Provider Facility Start: 12-21-2024 End: 12-21-[address] Marifer Mukherjee MD -[facility] Work Phone: Start: 12-21-2024 End: 12-21-[address] Marifer Mukherjee MD Work Phone: -[facility] Start: 10-05-2024 Non-patient / Non-visit Dr. Aiden SCHNEIDER -[facility] Work Phone: Start: 10-05-[address] Frida Mukherjee MD -Cat Scan [facility] Work Phone: Start: 10-05-2024 ambulatory Marifer Mukherjee Facili ty:[facility] Start: 09-20-2024 End: 09-20-[address] Marifer Mukherjee MD -[facility] Work Phone: Start: 09-20-2024 End: 09-20-2024 ambulatory Marifer Mukherjee Facility:[facility] Start: 09-05-2024 End: 09-05-[address] Marifer Mukherjee MD -[facility] Work Phone: Start: 09-05-2024 End: 09-05-[address] Marifer Mukherjee MD Work Phone: [facility] Work Phone: Start: 09-05-2024 End: 09-05-2024 ambulatory Marifer Mukherjee Facility:[facility] Start: 07-20-2024 End: 07-20-[address] Marifer Mukherjee MD Work Phone: [facility] Work Phone: Start: 07-20-2024 End: 07-20-[address] Marifer Mukherjee MD -Laboratory, [place] Start: 07-20-2024 End: 07-20-2024 ambulatory [facility] Facility:[facility] Start: 05-31-2024 End: 05-31-[address] Marifer Mukherjee MD -Labor[facility], [facility] Start: 05-31-2024 End: 05-31-2024 ambulatory [facility] Facility:[facility] Start: 04-12-2024 End: 04-12-[address] Marifer Mukherjee MD -Labor[facility], [facility] Start: 04-12-2024 End: 04-12-2024 ambulatory [facility] Facility:[facility] Start: 03-07-2024 End: 03-07-2024 ambulatory [facility] Facility:[facility] Start: 02-24-2024 End: 02-24-2024 ambulatory [facility] Facility:[facility] Start: 08-25-2023 End: 08-25-2023 ambulatory No Primary Care Physician [facility] Work Phone: Start: 08-25-2023 End: 08-25-2023 Patient encounter procedure No Primary Care Physician [facility], [facility] Start: 07-28-2023 End: 07-28-2023 ambulatory No Primary Care Physician [facility] Work Phone: Start: 07-28-2023 End: 07-28-2023 Patient encounter procedure No Primary Care Physician [facility]-Outpatient Bone Densitometry Work Phone: Start: 07-06-2023 End: 07-06-2023 ambulatory No Primary Care Physician [facility] Work Phone: Start: 07-06-2023 End: 07-06-2023 Patient encounter procedure No Primary Care Physician [facility], [facility] Start: 06-29-2023 Patient encounter status No Primary Care Physician [facility] Start: 06-29-2023 End: 06-29-2023 Encounter for general adult medical examination without abnormal findings No Primary Care Physician [facility] Start: 06-29-2023 End: 06-29-2023 Patient encounter procedure [facility] Work Phone: Start: 08-09-2021 End: 08-09-2021 Patient encounter procedure [facility]Labor[facility] Procedures Date Procedure Procedure Detail Performing Clinician Start: 10-05-2024 CT angiography of co ronary arteries Dr. Marifer Mukherjee MD Work Phone: Start: 09-20-2024 Screening mammography Reynaldo Mukherjee MD Work Phone: Start: 07-28-2023 Dual energy X-ray absorptiometry No Primary Care Physician Start: 07-28-2023 Screening mammography N o Primary Care Physician Plan of Treatment Date Care Activity Detail Author Start: 09-20-2024 MG Breast - bilatera l Screening [facility] Start: 07-28-2023 Dual energy X-ray absorptiometry Dexa Bone Density Study [facility] Start: 07-28-2023 DXA Bone [Mass/Area] Bone density [facility] Start: 06-29-2023 Patient referral [facility] Work Phone: Comprehensive metabo lic 2000 panel - Serum or Plasma [facility] CT angiography of co ronary arteries [facility] DXA Bone [Mass/Area] Bone density [facility] Lipid 1996 panel - S kalpesh or Plasma [facility] MG Breast - bilatera l Screening [facility] Patient referral [facility] Work Phone: Thyroid stimulating hormone measurement [facility] Vitamin D, 25-hydrox y measurement [facility] Immunizations Immunization Date Immunization Notes Care Provider [facility] 02-09-2024 Covid (Spikevax) Dr. Kelly Mukherjee MD Work Phone: [facility] 02-06-2024 Covid (Spikevax) Dr. Kelly Mukherjee MD Work Phone: [facility] 02-06-2024 Influenza High-Dose Quadrivalent Dr. Marifer Mukherjee MD Work Phone: [facility] 09-16-2023 diphtheria, tetanus toxoids and acellular pertussis vaccine Dr. Marifer Mukherjee MD Work Phone: [facility] 02-20-2023 Covid (Spikevax) Dr. Kelly Mukherjee MD Work Phone: [facility] 02-21-2022 Covid Pfizer Bivalen t Booster Dr. Marifer Mukherjee MD Work Phone: [facility] 04-30-2021 Covid (Moderna) Dr. Dennis Mukherjee MD Work Phone: [facility] 08-04-2020 Covid (Moderna) Dr. Dennis Mukherjee MD Work Phone: [facility] 07-07-2020 Covid (Moderna) Dr. Dennis Mukherjee MD Work Phone: [facility] Payers Date Payer Category Payer Unknown [id number] 2024 Self-pay [id number] 2023 Medicare [id number] 2023 Private Health Insurance [facility] [id number] Unknown [id number] Unknown [id number] 2.16.8 [id number] Unknown [id number] 2.16.8 [id number] Unknown [id number] 2.16.8 [id number] Unknown [id number] 2.16.8 [id number] Unknown [id number] 2.16.8 [id number] Unknown [id number] 2.16.8 [id number] Unknown [id number] 2.16.8 [id number] Unknown [id number] 2.16.8 [id number] Unknown [id number] 2.16.8 [id number] Unknown [id number] 2.16.8 [id number] Unknown [id number] 2.16.8 [id number] Social History Date Type Detail [facility] Work Phone: Start: 1955 Sex Assigned At Female [facility] Start: 06-29-2023 End: 07-22-2023 Tobacco smoking status [facility] Unknown if ever smoked [facility] Start: 09-02-2023 [facility] (finding[facility] Start: 08-02-2024 End: 09-08-2024 Sex Female (finding) [facility] Progress note 12-21-2024 Note Date & Type Note Facility 12-21-2024 Progress note [facility] Progress note 12-21-2024 Note Date & Type Note Facility 12-21-2024 Progress note Note Date/Time December 21, 2024 8:35am [facility] [address] [place], [place] [address] OFFICE VISIT Date of Service: 12/21/24 MR#: [id number] Acct: [id number] Name: BAILEY BEST Rep #: [id number] : 1955 Provider: Dr. Gulshan Mukherjee MD Age/Sex: 69/F Location: [facility] Status: Signed Intake Vital Signs 09/05/24 10:18 12/21/24 07:40 Height 5 ft 5 in 5 ft 5 in Weight: 182 lb 2 oz BMI 30.3 BP 110/58 L Blood Pressure Location Lt brachial Position Sitting Respiration 16 Pulse 83 Pulse Source Monitor Temp 97.7 F L Temp Source Oral Pulse Oximetry (%) 96 Oxygen Delivery Method room air Intake Visit Reasons: discuss calcium scoring Chief Complaint: Follow-up chronic conditions. 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 Required: No Accompanied by: Self Is patient in pain?: No Allergies Seasonal Allergies: Uncoded Allergy (Mild, Verified 12/21/24 07:42) sneezing Medications ?Medication ?Instructions ?Recorded ?Confirmed ?Type multivitamin 1 tab PO DAILY 06/29/2311/24 History Vit D 2000 PO 09/02/23 12/21/24 History calcium 600 PO 09/02/23 12/21/24 History levothyroxine 75 mcg tablet 75 mcg PO DAILY #90 tabs 0 09/05/24 12/21/24 Rx metoprolol tartrate 50 mg tablet 50 mg PO QDAY #1 TAB 10/04/24 12/21/24 Rx ketoconazole 2 % shampoo topical 2XW 12/21/24 5 History minoxidil 2.5 mg tablet 0.25 mg PO QDAY 12/21/24 History rosuvastatin 5 mg tablet 5 mg PO QDAY #30 tabs 12/21/24 Rx Have you fallen in the past year?: Yes Nurse's Note: patient is here to discuss results of calcium scoring. [facility] Medical History (Updated 12/21/24 @ 08:[address] Marifer Mukherjee MD) Coronary artery disease At risk for diabetes mellitus Family history of early CAD At risk for cardiovascular event Osteopenia Hypothyroidism Health care maintenance Hair loss Nocturia Trigger finger Gallstones Back problem Arthritis Anemia Allergies Surgical History Status post tendon repair History of cholecystectomy H/O tubal ligation Family History Sister Alcoholism Brother Alcoholism Arthritis Father Alcoholism Myocardial infarction, Onset Age: 60 Heart disease Mother Arthritis Heart disease Vitiligo Aunt Cancer Uncle Cancer Grandmother Diabetes Social History current occupational status: retired Smoking Status: Never smoker alcohol intake: current alcohol intake frequency: holidays/special occasions only Alcohol type: wine substance use type: does not use what type of physical activity do you participate in: walking frequency: 3-4 times per week kevin/sabianism: None seatbelt use: always do you feel safe at home: Yes HPI HPI Chief Complaint: Follow-up chronic conditions. Discussed coronary calcium scoring Details: BAILEY BEST, is a 69 F who presents to the office today for follow-up of herchronic conditions. Recently had coronary calcium scoring which showed mild plaque in the LAD. She states that her brother also had coronary calcium scoring with similar finding. Positive family history of early CAD. Last lipid profile with LDL at 119 down from 128. HDL was 67. No tobacco or alcohol abuse. Current BMI of 30.3. History of hypothyroidism on levothyroxine. Last TSH was within range. No heator cold intolerance or unintentional weight changes. Other chronic medical conditions are stable. ROS Const Constitutional: No body ache, chills, excessive sweating, fatigue, fever(s), frequent falls, headache(s), snoring, weakness, weight change, sleep problems orchange in appetite Eyes Eyes: No blurry vision, change in vision, vision loss, dry eyes, eye pain or Light sensitivity ENT ENT: No abnormal hearing, ear or mastoid pain, tinnitus, nasal congestion, headache(s), neck pain or sore throat Resp Respiratory: No cough, excessive phlegm production, hemoptysis, shortness of breath, snoring or wheezing Cardio Cardiology: No chest pain at rest, chest pain with exertion, excessive sweating,shortness of breath, lightheadedness, orthopnea or palpitations Gastro GI: No abdominal pain, change in bowel habits, constipation, cramping, diarrhea,nausea/dyspepsia or vomiting Genitourinary-Female: No burning urination, painful urination, urinary incontinence, urinary frequency, abnormal vaginal bleeding or pelvic pain Musc Musculoskeletal: No abnormal gait, joint pain, back pain, limited range of motion, neck pain, numbness or tingling Skin Skin: No change in skin color, dry skin, redness, lesions, itchy eyes, rash or wounds Neuro Neurology: No abnormal gait, abnormal hearing, abnormal speech, dizziness, weakness, frequent falls, headache(s), memory loss, numbness or tingling Psych Psychiatric: No anxiety, No change in appetite, No depression, No memory loss and No Thoughts of harming yourself/Others Endo Endocrine: No cold intolerance, excessive sweating, fatigue, flushing, heat intolerance, increased thirst/drinking, increased hunger or weight change Aller/Imm Allergy/Immunologic: No itchy eyes, seasonal allergy symptoms, hives or wheezing Quinten/Lymp Hematologic/Lymphatic: No easy bleeding, easy bruising, enlarged lymph nodes or other Exam Const General: cooperative, comfortable and no acute distress Orientation: alert, awake and oriented x3 HENMT Head: normal to inspection, normocephalic and atraumatic Ears: hearing grossly normal bilaterally Eyes General: appearance normal, both eyes and all related structures Neck Neck: normal visual inspection, full ROM, no lymphadenopathy and supple Neck mass: No Thyroid: thyroid normal Resp Effort & Inspection: normal respiratory effort and able to speak in complete sentences Auscultation: Bilateral: Clear to Auscultation Cardio Rate: regular rate Rhythm: regular rhythm Heart Sounds: S1 normal and S2 normal GI Palpation: soft (Nontender, no palpable organomegaly.) Neuro General: patient alert, patient awake, patient oriented x3, moves all extremities and CN's II-XI intact bilaterally Extrem General: no clubbing, cyanosis or edema Psych Appearance: grossly normal Mental Status: mental status grossly normal Mood: congruent mood Affect: normal affect Results POC A1C POC A1C 6.1 % Last Edit by Mayela Giang MA on 12/21/24 08:19 Coding Level of Care Code Off vis,est,level 4 Diagnoses Coronary artery disease due to calcified coronary lesion I25.10; I25.84 Coronary Disease-Associated Artery/Lesion type: due to calcified coronary lesion Hypothyroidism E03.9 Osteopenia M85.80 Assessment and Plan Assessment and Plan (1) Coronary artery disease: Status: Chronic Qualifiers: Coronary Disease-Associated Artery/Lesion type: due to calcified coronary lesion Qualified Code(s): I25.10 - Atherosclerotic heart disease of [place] coronary artery without angina pectoris; I25.84 - Coronary atherosclerosis due to calcified coronary lesion Plan: Mild plaque noted in the LAD. Positive family history of early CAD. Cholesterol levels as discussed above. Very lengthy discussion had with patientabout risk factor modifications. We discussed statins, she states that she willgive a shot at it because her brother and daughter are currently taking it. Prescription for rosuvastatin sent. She was advised that she could take it withco-Q10 she voiced understanding. Other risk factor modifications also discussed. Repeat lipid profile and CMP in a month. (2) Hypothyroidism: Status: Chronic Plan: At this time, no concerns for overall under correction. Continue levothyroxine 75 mcg daily. Repeat TSH in about a month as well. (3) Osteopenia: Status: Acute Plan: Continue calcium, vitamin D supplements and exercise. This note was generated with [employer]ered[employer] software. It may contain incorrectwords, spelling, and punctuation that were not noted in checking the note beforesigning. Orders: Orders Lipid Profile Today E03.9 - Hypothyroidism, unspecified Thyroid Stim Hormone (TSH) 1 Month E03.9 - Hypothyroidism, unspecified Vitamin D,25 Hydroxy Today M85.80 - Other specified disorders of bone density and structure, unspecified site Comprehensive Metabolic Profil 1 Month E03.9 - Hypothyroidism, unspecified POC A1C Today Z91.89 - Other specified personal risk factors, not elsewhere classified Medications: New rosuvastatin 5 mg PO QDAY 30 tabs 3RF Clinical Quality Measures Falls Risk Screening/Assistive Devices Have you fallen in the past year?: Yes 12/21/24 0835 <Electronically signed by Marifer saba MD> Date _ Marifer Mukherjee MD Cosigner Signature: Date (if applicable) CC: ~ [facility] Work Phone: Evaluation note 09-05-2024 Note Date & Type Note Facility 09-05-2024 Evaluation note Diagnosis Onset Date Resolution At risk for diabetes mellitus acute September 05, 2024 10:16am Family history of early CAD acute September 05, 2024 10:16am Hypothyroidism chronic August 10:16am [facility] Work Phone: Evaluation note 09-05-2024 Note Date & Type Note Facility 09-05-2024 Evaluation note Diagnosis Onset Date Resolution At risk for diabetes mellitus acute September 05, 2024 10:16am Family history of early CAD acute September 05, 2024 10:16am Hypothyroidism chronic August 10:16am Osteopenia acute December 21 7:33am Coronary artery disease chronic J jesika 2024 7:33am Hypothyroidism chronic December 21, 2024 7:33am [facility] Work Phone: Evaluation note Note Date & Type Note Facility Evaluation note No assessment information availa ble [facility] Work Phone: Evaluation note Note Date & Type Note Facility Evaluation note Diagnosis Onset Date Health care maintenance acut e Anemia chronic Hair loss chronic Nocturia chronic [facility] Work Phone: Reason for referral (narrative) Note Date & Type Note Facility Reason for referral (narrative) No reason for referral information available [facility] Work Phone: Chief Complaint and Reason for Visit Chief Complaint EST NEW PT - PPW SEN T Reason for Visit Health care maintena nce Anemia Hair loss Nocturia Chief Complaint EST NEW PT - PPW SEN T SCREENING POST REMA Reason for Visit Health care maintena nce Anemia Hair loss Nocturia Chief Complaint Admit Date 6 M FU September 05, 2024 10: 16am Reason for Visit Admit Date At risk for diabetes mellitus August 10:16am Family history of early CAD September 05, 2024 10:16am Hypothyroidism September 05, 2024 10: 16am Chief Complaint Admit Date 6 M FU September 05, 2024 10: 16am Breast Cancer Screening September 20, 2024 9:26am FAMILY HISTORY OF EARLY CAD October 05 11:58am FAMILY HX OF EARLY CAD October 05, 2024 11 :59am discuss calcium scoring December 21, 2024 7:33am Reason for Visit Admit Date At risk for diabetes mellitus August 10:16am Family history of early CAD September 05, 2024 10:16am Hypothyroidism September 05, 2024 10: 16am Osteopenia December 21, 2024 7:33 am Coronary artery disease December 21, 2024 7:33am Hypothyroidism Catherine 30th, 2025 7:33 am Family History No Family History Records Found Relationship Condition Age at Onset Recorded Date/T amber sister Alcoholism Unknown brother Alcoholism Unknown Arthritis Unknown father Alcoholism Unknown Myocardial infarction 60 Cardiac disease Unknown mother Arthritis Unknown Vitiligo Unknown aunt Malignant neoplasm Unknown uncle Malignant neoplasm Unknown grandmother Diabetes mellitus Unknown Summary Purpose Advance Directives No Advanced Directives Records Found Additional Source Comments Goals (unrecognized section and content) Goals may be documented in a n alternate sectionGoals may be documented in an alternate sectionGoals may be documented in an alternate sectionGoals may be documented in an alternate sectionGoals may be documented in an alternate sectionGoals may be documented in an alternate sectionGoals may be documented in an alternate section Care Teams (unrecognized sec tion and content) Team Status: Active Member Role Status Dates No Primary Care Physician Family Provider Active Dr. Marifer Mukherjee MD Primary Care Provider Active Team Status: Inactive Member Role Status Dates No Primary Care Physician Primary Care Provider, Refer ring Provider Active Dr. Marifer Mukherjee MD Attending Provider Active Team Status: Inactive Member Role Status Dates Dr. Marifer Mukherjee MD Primary Care P natty, Attending Provider, Referring Provider Active Team Status: Inactive Member Role Status Dates Dr. Marifer Mukherjee MD Primary Care Provider Active Start: April 12, 2024 End: April 12, 2024 Dr. Marifer Mukherjee MD Attending Provider Active Start: April 12, 2024 End: April 12, 2024 Team Status: Inactive Member Role Status Dates Dr. Marifer Mukherjee MD Primary Care Provider Active Start: May 31, 2024 End: May 31, 2024 Dr. Marifer Mukherjee MD Attending Provider Active Start: May 31, 2024 End: May 31, 2024 Dr. Marifer Mukherjee MD Referring Provider Active Start: May 31, 2024 End: May 31, 2024 Team Status: Inactive Member Role Status Dates Dr. Marifer Mukherjee MD Primary Care Provider Active Start: July 20, 2024 End: July 20, 2024 Dr. Marifer Mukherjee MD Attending Provider Active Start: July 20, 2024 End: July 20, 2024 Dr. Marifer Mukherjee MD Referring Provider Active Start: July 20, 2024 End: July 20, 2024 Team Status: Inactive Member Role Status Dates Dr. Marifer Mukherjee MD Primary Care Provider Active Start: September 05, 2024 End: September 05, 2024 Dr. Marifer Mukherjee MD Attending Provider Active Start: September 05, 2024 End: September 05, 2024 Dr. Marifer Mukherjee MD Referring Provider Active Start: September 05, 2024 End: September 05, 2024 Team Status: Active Member Role/Relationship Status Dates Dr. Marifer Mukherjee MD Primary Care Provider Active Team Status: Inactive Member Role/Relationship Status Dates Dr. Marifer Mukherjee MD Primary Care Provider Active Start: September 05, 2024 End: September 05, 2024 Dr. Marifer Mukherjee MD Attending Provider Active Start: September 05, 2024 End: September 05, 2024 Dr. Marifer Mukherjee MD Referring Provider Active Start: September 05, 2024 End: September 05, 2024 Team Status: Inactive Member Role/Relationship Status Dates Dr. Marifer Mukherjee MD Primary Care Provider Active Start: September 05, 2024 End: September 05, 2024 Dr. Marifer Mukherjee MD Attending Provider Active Start: September 05, 2024 End: September 05, 2024 Dr. Marifer Mukherjee MD Referring Provider Active Start: September 05, 2024 End: September 05, 2024 Team Status: Inactive Member Role/Relationship Status Dates Dr. Marifer Mukherjee MD Primary Care Provider Active Start: September 20, 2024 End: September 20, 2024 Dr. Marifer Mukherjee MD Attending Provider Active Start: September 20, 2024 End: September 20, 2024 Dr. Marifer Mukherjee MD Referring Provider Active Start: September 20, 2024 End: September 20, 2024 Team Status: Active Member Role/Relationship Status Dates Dr. Marifer Mukherjee MD Primary Care Provider Active Start: October 05, 2024 Dr. Marifer Mukherjee MD Attending Provider Active Start: October 05, 2024 Dr. Marifer Mukherjee MD Referring Provider Active Start: October 05, 2024 Team Status: Active Member Role/Relationship Status Dates Dr. Marifer Mukherjee MD Primary Care Provider Active Start: October 05, 2024 Dr. Marifer Mukherjee MD Referring Provider Active Start: October 05, 2024 Dr. Dustin Drummond MD Attending Provider Active S tart: October 05, 2024 Team Status: Inactive Member Role/Relationship Status Dates Dr. Marifer Mukherjee MD Primary Care Provider Active Start: December 21, 2024 End: December 21, 2024 Dr. Marifer Mukherjee MD Attending Provider Active Start: December 21, 2024 End: December 21, 2024 Dr. Marifer Mukherjee MD Referring Provider Active Start: December 21, 2024 End: December 21, 2024 INFORMATION SOURCE (unrecogn ized section and content) DATE CREATED AUTHOR 12/22/2024 [facility] FOR RECORDS PERTAINING TO PATIENTS WHO ARE OR HAVE BEEN ENROLLED IN A CHEMICAL DEPENDENCY/SUBSTANCEABUSE PROGRAM, SOME INFORMATION MAY BE OMITTED. This clinical summary was aggregated from multiple sources. Caution should be exercised in using it in the provision of clinical care. This summary normalizes information from multiple sources, and as a consequence, information in this document may materially change the coding, format and clinical context of patient data. In addition, data may be omitted in some cases. CLINICAL DECISIONS SHOULD BE BASED ON THE PRIMARY CLINICAL RECORDS. [facility] [employer] provides no warranty or guarantee of the accuracy or completeness of information in this document.
[2025-01-21 10:33] LABS: AST(SGOT) 24 U/L (<=31); Alanine Aminotransfer ALT/SGPT 12 U/L (<=34); Albumin, Serum 3.8 g/dL (3.4-4.8); Alkaline Phosphatase 83 U/L (35-104); Anion Gap 9 (5-15); BUN 15 mg/dL (4-19); BUN/Creat Ratio 18.8 RATIO (10-20); Calcium,Total 9.0 mg/dL (7.6-11.0); Carbon Dioxide 25.8 mmol/L (21.0-32.0); Chloride 106 mmol/L (98-108); Globulin 3.2 g/dL (2.2-4.2); Glucose 92 mg/dL (70-99); Potassium 4.0 mmol/L (3.3-5.1); Vitamin D,25 Hydroxy 47.2 ng/mL (30-100)
[2025-01-21 10:51] LABS: Cholesterol 143 mg/dL (<=200); Low Density Lipoprotein Calc. 62 mg/dL; Triglycerides 71 mg/dL; Very Low Density Lipoprotein 14 mg/dL (5-40); cholesterol:hdl ratio screen 2.15
== END | disposition home or self-care (01) ==
LOC: LAB 08:40
PROVIDERS: PCP Internal Medicine; Referring Provider Internal Medicine; Visit Provider Internal Medicine
DX: E03.9 Hypothyroidism, unspecified (principal); M85.80 Other specified disorders of bone density and structure, unspecified site
CPT/HCPCS: 36415; 80053; 80061; 82306; 84443

== ENCOUNTER → 2025-03-23 | Outpatient (CLI) | payer MEDICARE, OTHER, SELFPAY ==
[2025-03-23 13:31] LABS: AST(SGOT) 25 U/L (<=31); Alanine Aminotransfer ALT/SGPT 16 U/L (<=34); Albumin, Serum 3.8 g/dL (3.4-4.8); Alkaline Phosphatase 80 U/L (35-104); Anion Gap 8 (5-15); Calcium,Total 9.3 mg/dL (7.6-11.0); Carbon Dioxide 28.9 mmol/L (21.0-32.0); Chloride 105 mmol/L (98-108); Potassium 4.1 mmol/L (3.3-5.1)
[2025-03-23 13:37] LABS: BUN 16 mg/dL (4-19); BUN/Creat Ratio 18.6 RATIO (10-20); Globulin 3.1 g/dL (2.2-4.2); Glucose 100 mg/dL (70-99); Magnesium 2.0 mg/dL (1.5-2.2)
== END | disposition home or self-care (01) ==
LOC: MFPLAB 11:03
PROVIDERS: PCP Internal Medicine; Visit Provider Nurse Practitioner Family
DX: R25.2 Cramp and spasm (principal)
CPT/HCPCS: 36415; 80053; 83735

== ENCOUNTER → 2025-04-13 | Outpatient (CLI) | payer MEDICARE, OTHER, SELFPAY ==
--- NOTE | 2025-04-13 07:45 | ECHOD_ITS ---
Reason For Study Reason For Study: DYSPNEA/SOB Procedure This was a 2D Doppler, Color Flow transthoracic echocardiogram. Exam performed in department. Left Ventricle Normal left ventricular size. Normal left ventricular wall thickness. LVEF by Lucio's biplane: 65%. Normal left ventricular systolic function. Normal left ventricular diastolic function. E/e' suggest normal filling pressures. No regional wall motion abnormalities noted. Right Ventricle Normal right ventricle. Normal systolic function. RVSP estimated to be: 35 to 40 mmHg. Atria The left and right atria are normal. Right atrial pressure estimated be: 3 mmHg. Mitral Valve Normal mitral valve with no prolapse. No mitral stenosis. No mitral regurgitation. Tricuspid Valve Normal tricuspid valve. There is no tricuspid valve prolapse. There is no tricuspid stenosis. Mild to moderate tricuspid regurgitation. Aortic Valve Normal aortic valve. Trisinus/trileaflet aortic valve. There is no hemodynamically significant aortic stenosis. There is no aortic regurgitation. Pulmonic Valve Normal pulmonic valve. There is no pulmonic valvular stenosis. Trivial pulmonic valve insufficiency identified. Great Vessels Normal sized aortic root. Normal ascending aorta. Pericardium/Pleural No pericardial effusion. MMode/2D Measurements & Calculations LVIDd: 3.8 cm IVSd: 0.85 cm Ao root diam: 3.1 cm LVIDs: 2.4 cm LVPWd: 0.74 cm RVDd: 4.1 cm FS: 36.4 % LAV(MOD-bp): 43.1 ml LVAd ap4: 22.4 cm2 LVAd ap2: 21.7 cm2 LAV(MOD-bp) Indexed: 22.7 ml/m2 LVLd ap4: 7.9 cm LVLd ap2: 7.3 cm LAV(MOD-sp2): 40.6 ml EDV(MOD-sp4): 52.6 ml EDV(MOD-sp2): 53.7 ml LAV(MOD-sp4): 37.7 ml EDV(sp4-el): 54.0 ml EDV(sp2-el): 54.3 ml LVAs ap4: 12.2 cm2 LVAs ap2: 10.7 cm2 LVLs ap4: 6.6 cm LVLs ap2: 6.3 cm ESV(MOD-sp4): 19.8 ml ESV(MOD-sp2): 15.7 ml ESV(sp4-el): 19.3 ml ESV(sp2-el): 15.4 ml EF(MOD-sp4): 62.4 % EF(MOD-sp2): 70.8 % EF(sp4-el): 64.2 % SV(MOD-sp4): 32.8 ml SV(MOD-sp2): 38.0 ml SV(sp4-el): 34.7 ml SI(MOD-sp4): 17.3 ml/m2 SI(MOD-sp2): 20.1 ml/m2 LA A4 area: 16.0 cm2 LA dimension(2D): 3.6 cm RA A4 area: 18.1 cm2 TAPSE: 2.0 cm Time Measurements MV dec time: 0.23 sec Doppler Measurements & Calculations MV E max leonides: 89.2 cm/sec Lat Peak E' Leonides: 11.2 cm/sec Med Peak E' Leonides: 8.4 cm/sec MV A max leonides: 106.4 cm/sec E/E' lat: 7.9 E/E' med: 10.6 MV E/A: 0.84 Ao V2 max: 155.2 cm/sec LV V1 max: 90.0 cm/sec MV dec slope: 386.0 cm/sec2 Ao max P.6 mmHg LV V1 max P.2 mmHg Ao V2 mean: 101.6 cm/sec LV V1 mean P.6 mmHg Ao mean P.9 mmHg LV V1 mean: 57.3 cm/sec Ao V2 VTI: 33.6 cm LV V1 VTI: 20.1 cm AV (velocity ratio): 0.60 PA V2 max: 116.6 cm/sec PI end-d leonides: 82.9 cm/sec TR max leonides: 288.7 cm/sec TR max P.3 mmHg ECHO/Echo Complete Interpretation Summary Normal left ventricular size LVEF by Lucio's biplane: 65%. Normal left ventricular systolic function. Normal left ventricular diastolic function. Normal RV systolic function Mild-moderate tricuspid regurgitation Recommend routine valvular surveillance echocardiogram in 2 years Ordering Physician: Tia Reyna Referring Physician: Marifer Mukherjee Performed By: Stan Jones RDCS
== END | disposition home or self-care (01) ==
LOC: CVS 07:44
PROVIDERS: PCP Internal Medicine; Referring Provider Nurse Practitioner Family; Visit Provider Nurse Practitioner Family
DX: R01.1 Cardiac murmur, unspecified (principal); R06.02 Shortness of breath
CPT/HCPCS: 93306